=== PATIENT | female | born 1965 | race Caucasian/White ===

== ENCOUNTER 2016-02-16 | Inpatient (IN) | payer MEDICARE, MEDICAID ==
[~2016-02-16] VITALS: Ht 170.2 cm; Wt 90.9 kg
[~2016-02-16] MED LIST: ABILIFY20 MG PO; AMBIEN10 MG PO; ISOSORBIDE MONO30 M1 PO; LOPRESSOR25 MG PO; PROZAC20 MG PO; ZPAK PO
[2016-02-16] MEDS ORDERED: ZYPREXA15 MG PO (01:53)
[2016-02-16] MEDS ORDERED: VALIUM10 MG PO (01:55)
[2016-02-16] MEDS ORDERED: DILAUDID2 MG PO (01:56)
[2016-02-16 02:23] VITALS: BP 104/60; Ht 170.2 cm; Wt 90.9 kg
--- NOTE | 2016-02-16 03:14 | NUR ---
20 PIV TO RIGHT FOREARM D/C WITH CATH INTACT AFTER PATIENT EXPRESSED DISCOMFORT. 22 G PIV STARTED IN RIGHT HAND.
[2016-02-16 04:00] VITALS: BP 104/60
--- NOTE | 2016-02-16 07:30 | NUR ---
AWAKE ALERT COLOR ADQ SKIN WARM AND DRY RESP EVEN AND UNLABORED LUNGS RALES WHEEZES IV CONT TO RDH AT PRESENT.
[2016-02-16 08:26] VITALS: BP 102/65
--- NOTE | 2016-02-16 09:00 | NUR ---
QUIET IN ROOM AT PRESENT DENIES ANY NEEDS AT THIS TIME.
--- NOTE | 2016-02-16 10:30 | NUR ---
Patient Name: FRANCISCO MO Admission Status: ER Accout number: [id number] Admission Date: 02-16-2016 : 1965 Admission Diagnosis: Attending: TANIYA Current LOS: 1 Anticipated DC Date: 02-19-2016 Planned Disposition: Home Primary Insurance: MEDICARE A & B Discharge Planning Comments: CM MET WITH PATIENT AND SPOUSE (BARBARA) REGARDING D/C NEEDS AND PLANS. PATIENTS SPOUSE ANSWERED ALL THE QUESTIONS. PATIENTS SPOUSE WILL PICK PATIENT UP AT DISCHARGE. THERE ARE 6 STEPS W/O RAILS TO ENTER HOME AND NO STAIRS INSIDE. PATIENTS PCP IS DR. GRULLON AND PHARMACY IS [facility]. PATIENT IS INDEPENDENT WITH HER CARE AND HAS NO DME AT HOME PER SPOUSE. PATIENT HAS NEVER HAD HH BUT SPOUSE SAID THEY WOULD CONSIDER IF NEEDED. CM WILL CONTINUE TO FOLLOW PATIENT WITH D/C NEEDS AND PLANS. PCP DR. GRULLON [facility]- [phone] BARBARA (SPOUSE) [phone] Layer Out Plate Glass: Shell [place] Is the patient Alert and Oriented? Yes 0 * How many steps to enter\exit or inside your home? 6 NO RAILS 0 * PCP DR. GRULLON 0 * Pharmacy [facility] 0 * Preadmission Environment Home with Family 0 * ADLs Independent 0 * Equipment None 0 * List name and contact numbers for known caregivers / representatives who currently or will assist patient after discharge: BARBARA ([phone]) 0 * Community resources currently utilized None 0 * Additional services required to return to the preadmission environment? Yes 0 * Can the patient safely return to the preadmission environment? Yes 0 * Has this patient been hospitalized within the prior 30 days at any hospital? No 0 Grand Total: 0
--- NOTE | 2016-02-16 10:54 | NUR ---
SLEEPING QUIETLY AT PRESENT RESP EVEN AND UNLABORED AT PRESENT AT BEDSIDE AT PRESENT.
[2016-02-16 11:11] LABS: BASOPHILS 0.3 % (0.0-2.0); EOSINOPHILS 2.1 % (0-7); HEMATOCRIT 37.7 % (36.0-48.0); HEMOGLOBIN 12.3 g/dL (12-16); IMMATURE GRANULOCYTES 0.3 % (0-5); MCH 30.4 pg (26.0-34.0); MCHC 32.6 g/dL (31.0-37.0); MCV 93.3 fL (80.0-100.0); MEAN PLATELET VOLUME 10.7 fL (7.4-10.4); MONOCYTES 7.9 % (2-11); NEUTROPHILS 61.4 % (40-80); PLATELET COUNT 243 10x3/uL (130-400); RBC 4.04 10x6/uL (4.00-5.40); RDW 16.2 % (11.5-14.5); WBC 11.2 10x3/uL (4.8-10.8)
--- NOTE | 2016-02-16 14:12 | NUR ---
QUIET IN ROOM AT PRESENT
--- NOTE | 2016-02-16 15:42 | NUR ---
COUGHING DRY NON-PRODUCTIVE BREATH SOUNDS DIMINSHED AT PRESENT.
[2016-02-16 16:20] VITALS: BP 114/69
--- NOTE | 2016-02-16 18:03 | NUR ---
STATUS REMAINS UNCHGD AT PRESENT DENIES ANY NEEDS SLEEPING CONT AT BEDSIDE.
--- NOTE | 2016-02-16 19:30 | NUR ---
ASSESSMENT PER FLOWSHEET. PT C/O BURNING AT IV SITE. CHECKED FOR PLACEMENT NO BLOOD RETURN NOTED. IV REMOVED AND RESITED TO LEFT HAND #22G ANGIOCATH X1 ATTEPMT RESUMED IV FLUIDS OF D5NS AT 100CC'S/HR PLASTERER SPRAY GUN OF DILAUDID IN USE WITH SETTINGS AT 0.2MG Q10MIN WITH 4MG Q4H L/O. INSRUCTED PT THE NEED FOR URINE SPECIMEN.
[2016-02-16 21:00] VITALS: BP 111/67
--- NOTE | 2016-02-16 21:00 | NUR ---
RESTING QUIETLY SPOUSE IN ROOM.
--- NOTE | 2016-02-17 00:40 | NUR ---
EYES CLOSED RESPIRATIONS WITH EASE AND UNLABORED.
[2016-02-17 01:00] VITALS: BP 110/66
--- NOTE | 2016-02-17 01:15 | NUR ---
STATES CANNOT VOID. UP TO BR VOIDED 100CC'S YELLOW URINE. BLADDER SCAN DONE 180CC'S NOTED IN BLADDER.
[2016-02-17 02:19] LABS: APPEARANCE CLOUDY (CLEAR); BILIRUBIN NEGATIVE (NEGATIVE); COLOR YELLOW (YELLOW); GLUCOSE NEGATIVE (NEGATIVE); KETONE NEGATIVE (NEGATIVE); LEUKOCYTE ESTERASE TRACE (NEGATIVE); NITRITE NEGATIVE (NEGATIVE); PH 5.5 (5.0-6.0); PROTEIN NEGATIVE (NEGATIVE); UROBILINOGEN NORMAL (NORMAL)
[2016-02-17 02:26] LABS: UDS - AMPHET NEGATIVE QUAL (NEGATIVE); UDS - BARB NEGATIVE QUAL (NEGATIVE); UDS - BENZO POSITIVE QUAL (NEGATIVE); UDS - COCAINE NEGATIVE QUAL (NEGATIVE); UDS - METH NEGATIVE QUAL (NEGATIVE); UDS - OPIATE POSITIVE QUAL (NEGATIVE); UDS - PCP NEGATIVE QUAL (NEGATIVE); UDS - THC NEGATIVE QUAL (NEGATIVE)
[2016-02-17 02:27] LABS: BACTERIA MODERATE /hpf (NONE SEEN); HYALINE CAST OCC /lpf (NONE SEEN); MUCUS <1+ /lpf (NONE SEEN); RED CELLS - URINE 0-5 /hpf (0-5); WHITE CELLS - URINE 0-5 /hpf (0-5)
--- NOTE | 2016-02-17 04:00 | NUR ---
MEDS GIVEN PER APR. PT STATES IV APPEARS TO BE SWELLING ASPIRATED IV SITE WITH NS FLUSH GOOD BLOOD RETURN NOTED. FLUSHED IV SITE AND RESUMED IV FLUIDS.
[2016-02-17 06:00] VITALS: BP 114/68
--- NOTE | 2016-02-17 06:00 | NUR ---
UP AD IVETT TO BR VOIDS 300 CC'S YELLOW URINE.
--- NOTE | 2016-02-17 07:30 | NUR ---
QUIET IN ROOM AT PRESENT N/C VOICED AT THIS TIME.IVCONT AT 75CC/HR/IVAC.
[2016-02-17 08:37] VITALS: BP 115/73
--- NOTE | 2016-02-17 09:00 | NUR ---
MEDS GIVEN KARLOS WELL AT PRESENT.
--- NOTE | 2016-02-17 11:00 | NUR ---
NO COMPLIANTS VOICED AT PRESENT.
[2016-02-17 12:23] VITALS: BP 135/69
--- NOTE | 2016-02-17 13:00 | NUR ---
SLEEPING QUIETLY AT PRESENT DENIES ANY NEEDS AT THIS TIME.
[2016-02-17 16:11] VITALS: BP 135/70
--- NOTE | 2016-02-17 17:00 | NUR ---
WATCHING TV QUIETLY AT PRESENT.
--- NOTE | 2016-02-17 19:00 | NUR ---
AMB IN HALLWAY WITH IV KARLOS WELL AT PRESENT.
--- NOTE | 2016-02-17 20:55 | NUR ---
ASSESSMENT COMPLETED, NO ACUTE DISTRESS NOTED, DENIES NEEDS, VISITOR IN ROOM, SR'S UP X2, CL IN REACH
[2016-02-17 21:00] VITALS: BP 134/80
--- NOTE | 2016-02-17 22:16 | NUR ---
AB'S HUNG PER LUIS, KARLOS BEARD, VISITOR IN ROOM, CL IN REACH
--- NOTE | 2016-02-18 01:33 | NUR ---
MYA MILLER PER LUIS, KARLOS WELL, CL IN REACH
[2016-02-18 02:00] VITALS: BP 126/77
[2016-02-18 07:56] VITALS: BP 123/66
[2016-02-18 11:21] LABS: BASOPHILS 0.4 % (0.0-2.0); EOSINOPHILS 3.5 % (0-7); HEMATOCRIT 33.9 % (36.0-48.0); HEMOGLOBIN 10.8 g/dL (12-16); IMMATURE GRANULOCYTES 0.3 % (0-5); LYMPHOCYTES 33.8 % (15-50); MCH 29.5 pg (26.0-34.0); MCHC 31.9 g/dL (31.0-37.0); MCV 92.6 fL (80.0-100.0); MONOCYTES 8.2 % (2-11); NEUTROPHILS 53.8 % (40-80); PLATELET COUNT 217 10x3/uL (130-400); RBC 3.66 10x6/uL (4.00-5.40); RDW 15.8 % (11.5-14.5); WBC 9.6 10x3/uL (4.8-10.8)
[2016-02-18 11:39] LABS: ALBUMIN 2.8 g/dL (3.4-5.0); ALKALINE PHOSPHATASE 102 U/L (46-116); ALT (SGPT) 61 U/L (10-68); BILIRUBIN - TOTAL 0.44 mg/dL (0.2-1.3); CALC OSMOLALITY 271 mosm/kg (275-300); CALCIUM 8.3 mg/dL (8.5-10.1); CARBON DIOXIDE 25.4 mmol/L (21.0-32.0); CHLORIDE - SERUM 103 mmol/L (98-107); CREATININE - SERUM 0.7 mg/dL (0.6-1.3); GLUCOSE 113 mg/dL (74-106); POTASSIUM - SERUM 3.4 mmol/L (3.5-5.1); PROTEIN - SERUM 6.3 g/dL (6.4-8.2); SODIUM 137 mmol/L (136-145); UREA NITROGEN 5 mg/dL (7-18); eGFR NON AFRICAN AMERICAN > 90 mL/min (90-120)
[2016-02-18 12:24] VITALS: BP 117/67
--- NOTE | 2016-02-18 13:58 | NUR ---
PATIENT STATED SHE DOESN'T FEEL WELL. CHECKED OXGYEN SATURATION 85% ON ROOM AIR. APPLIED 2L/MIN OF OXYGEN. PATIENT'S OXGYEN LEVEL WENT UP TO 93%.
[2016-02-18 16:06] VITALS: BP 113/69
[2016-02-18 17:05] LABS: ERYTHROCYTE SEDIMENTATION RATE 43 mm/hr (0-30)
--- NOTE | 2016-02-18 19:59 | NUR ---
RECIEVED PT SITTING UP IN BED TALKING WITH VISITOR, ASSESSMENT COMPLETED, NO ACUTE DISTRESS NOTED, POPSICLE PROVIDED PER REQUEST, ENCOURAGED OXYGEN USE, NC PLACED, DENIES FURTHER NEEDS AT THIS TIME, SR'S UP X2, CL IN REACH, WILL MONITOR
[2016-02-18 20:00] VITALS: BP 111/43
--- NOTE | 2016-02-18 21:34 | NUR ---
MEDS GIVEN PER MAR, KARLOS WELL, DENIES NEEDS, SR'S UP X2, CL IN REACH, FAMILY IN ROOM
--- NOTE | 2016-02-18 23:08 | NUR ---
SOLUMEDROL GIVEN PER MAR, KARLOS WELL, NO DISTRESS NOTED, CL IN REACH
--- NOTE | 2016-02-19 00:56 | NUR ---
RESTING WITH EYES CLOSED, RESP WITH EASE, MYA MILLER PER APR, KARLOS WELL, SR'S UP X2, CL IN REACH
[2016-02-19 01:00] VITALS: BP 110/55
--- NOTE | 2016-02-19 01:58 | NUR ---
PATIENT AMBULATING IN HALLWAY ASKING FOR SODA, NO IV POLE, PATIENT STATES " I MUST HAVE ROLLED OVER AND PULLED IT OUT", MIDLINE IV FOUND ATTACHED TO TUBING WITH CATH INTACT, NO ACTIVE BLEEDING NOTED, WILL ATTEMPT TO SITE PERIPHERAL IV.
--- NOTE | 2016-02-19 02:19 | NUR ---
20 G IV SITED IN L WRIST X1 STICK, KARLOS WELL, IV FLUIDS RESTARTED, RESP THERAPY IN ROOM ADMINISTERING TX, SR'S UP X2, CL IN REACH
[2016-02-19 06:39] LABS: BASOPHILS 0.1 % (0.0-2.0); EOSINOPHILS 0 % (0-7); HEMATOCRIT 34.4 % (36.0-48.0); HEMOGLOBIN 11.1 g/dL (12-16); IMMATURE GRANULOCYTES 0.3 % (0-5); LYMPHOCYTES 12.3 % (15-50); MCH 29.8 pg (26.0-34.0); MCHC 32.3 g/dL (31.0-37.0); MCV 92.2 fL (80.0-100.0); MONOCYTES 4.3 % (2-11); PLATELET COUNT 254 10x3/uL (130-400); RBC 3.73 10x6/uL (4.00-5.40); RDW 15.4 % (11.5-14.5)
[2016-02-19 06:44] LABS: CALCIUM 8.8 mg/dL (8.5-10.1); CARBON DIOXIDE 25.4 mmol/L (21.0-32.0); CHLORIDE - SERUM 106 mmol/L (98-107); CREATININE - SERUM 0.8 mg/dL (0.6-1.3); GLUCOSE 156 mg/dL (74-106); SODIUM 141 mmol/L (136-145); eGFR NON AFRICAN AMERICAN 80 mL/min (90-120)
[2016-02-19 07:02] LABS: CALC OSMOLALITY 282 mosm/kg (275-300); UREA NITROGEN 9 mg/dL (7-18)
[2016-02-19 07:59] VITALS: BP 130/69
--- NOTE | 2016-02-19 08:00 | NUR ---
PATIENT STATED "I STILL HAVEN'T GOT MY PAIN PUMP REFILLED." I STATED "THE ORDER FOR THE CLOTH GRADER SUPERVISOR IS DISCONTINUED. WE JUST HAVE AN ORDER FOR THE DILAUDID IN THE PILL FORM NOW." ADMINISTERED DILAUDID 2MG PO PER ORDER. PATIENT STATED "SO WHEN IS THE DOCTOR GOING TO COME IN AND LET ME KNOW IF I CAN GO HOME OR SOMETHING?" EXPLAINED TO PATIENT USUALLY COMES IN THE AFTERNOON AND USUALLY COMES IN THE EVENING.
--- NOTE | 2016-02-19 09:10 | NUR ---
DUMP TRUCK OPERATOR STATED "PATIENT STATED SHE IS NAUSEOUS AND HAS A MIGRAINE. AND WANTS TO GET IN THE SHOWER." PULLED MEDS FROM THE PYXIS TO ADMINISTER ZOFRAN. WENT IN PATIENT'S ROOM, PATIENT GETTING READY TO GET IN THE SHOWER. IV WRAPPED. NO SIGNS OF DISTRESS NOTED. I STATED "I WAS COMING TO BRING YOU YOUR MEDS BUT I CAN WAIT UNTIL YOU GET OUT OF THE SHOWER." PATIENT STATED "OKAY."
--- NOTE | 2016-02-19 09:30 | NUR ---
IV IN LEFT WRIST LEAKING. D/C IV WITH CATH INTACT. IV STARTED TO RIGHT WRIST, 22G X'S 2 ATTEMPTS.
[2016-02-19 10:17] LABS: ANA REFLEX - DIRECT Negative (Negative)
[2016-02-19 11:45] VITALS: BP 116/64
--- NOTE | 2016-02-19 14:00 | NUR ---
PATIENT STATED "I NEED SOMETHING FOR MY MIGRAINE. THE DILAUDID DID NOTHING FOR IT, AND NEITHER DID THE MOTRIN. I HAVE THIS IV, MAYBE HE CAN GIVE ME SOMETHING TO GO IN IT, PILLS JUST DO NOT WORK FOR A MIGRAINE." CALLED 'S OFFICE, SPOKE WITH NAHOMI, SHE STATED IS IN WITH A PATIENT. LEFT A MESSAGE FOR TO CALL BACK.
--- NOTE | 2016-02-19 15:10 | NUR ---
STILL HAS NOT CALLED BACK. CALLED 'S OFFICE, SPOKE WITH HIS NURSE. LEFT HER A MESSAGE FOR .
[2016-02-19 15:46] VITALS: BP 105/32
--- NOTE | 2016-02-19 17:00 | NUR ---
PATIENT STATED "I NEED SOMETHING FOR THIS HEADACHE." I STATED "DO YOU WANT ME TO GIVE YOU A MOTRIN OR A DILAUDID PILL?" SHE STATED "NO. TRY TO CALL AGAIN AND IF HE DOESN'T CALL BACK THEN I'LL TAKE SOMETHING."
--- NOTE | 2016-02-19 17:12 | NUR ---
CALLED THE ANSWERING SERVICE, THEY STATED DWAINN IS ANTI AIR WARFARE OPERATIONS OFFICER. PUT IN A PAGE.
--- NOTE | 2016-02-19 17:14 | NUR ---
SPOKE WITH AMBER ARENAS FOR , SHE STATED "I WILL GET IN TOUCH WITH HIM AND LET HIM KNOW."
--- NOTE | 2016-02-19 17:15 | NUR ---
PATIENT'S CALLED. HE STATED "SHE JUST CALLED AND TOLD ME TO COME PICK HER UP. IS SHE DISCHARGED?" EXPLAINED TO "SHE HAS NOT SAID ANYTHING TO ME ABOUT LEAVING. SHE IS WANTING SOME DIFFERENT PAIN MEDICATION, I HAVE TRIED TO CALL 3 TIMES. I AM WAITING FOR HIM TO CALL BACK."
[2016-02-19 19:00] VITALS: BP 100/49
--- NOTE | 2016-02-19 20:10 | NUR ---
ASSESSMENT COMPLETED, NO ACUTE DISTRESS NOTED, WANTING DR GRULLON TO RE ORDER IV PAIN MEDICATION, AWAITING RETURN CALL FROM PAGES, SPOUSE IN ROOM, SR'S UP X2, CL IN REACH
--- NOTE | 2016-02-19 21:11 | NUR ---
MEDS GIVEN PER MAR, KARLOS WELL, STILL AWAITING MD ORDERS, SPOUSE IN ROOM, CL IN REACH
--- NOTE | 2016-02-19 22:05 | NUR ---
PRN DILAUDID AND ZOFRAN GIVEN FOR COMPLAINT OF MIGRAINE WITH NAUSEA, SUGGESTED SHUTTING LIGHTS AND TV OFF, PT STATED " I USUALLY DO", REQUESTED SOMETHING TO EAT, NAIMA PROVIDED, SPOUSE IN ROOM, CL IN REACH
--- NOTE | 2016-02-20 06:03 | NUR ---
PATIENT RETURNED FROM XRAY, MEDS GIVEN PER MAR, KARLOS WELL, CL IN REACH
[2016-02-20 06:37] LABS: CALC OSMOLALITY 289 mosm/kg (275-300); CARBON DIOXIDE 25.1 mmol/L (21.0-32.0); CHLORIDE - SERUM 110 mmol/L (98-107); CREATININE - SERUM 0.8 mg/dL (0.6-1.3); GLUCOSE 141 mg/dL (74-106); POTASSIUM - SERUM 4.1 mmol/L (3.5-5.1); SODIUM 145 mmol/L (136-145); UREA NITROGEN 10 mg/dL (7-18); eGFR NON AFRICAN AMERICAN 80 mL/min (90-120)
[2016-02-20 06:46] LABS: BASOPHILS 0.1 % (0.0-2.0); EOSINOPHILS 0 % (0-7); HEMATOCRIT 34.1 % (36.0-48.0); IMMATURE GRANULOCYTES 0.6 % (0-5); LYMPHOCYTES 12.3 % (15-50); MCH 29.8 pg (26.0-34.0); MCHC 32.3 g/dL (31.0-37.0); MCV 92.4 fL (80.0-100.0); MEAN PLATELET VOLUME 9.9 fL (7.4-10.4); MONOCYTES 6.3 % (2-11); NEUTROPHILS 80.7 % (40-80); PLATELET COUNT 311 10x3/uL (130-400); RBC 3.69 10x6/uL (4.00-5.40); RDW 15.7 % (11.5-14.5); WBC 14.9 10x3/uL (4.8-10.8)
[2016-02-20 07:48] VITALS: BP 108/63
--- NOTE | 2016-02-20 10:39 | NUR ---
SHANK SORTER PUT EGG CRATE ON BED. PATIENT VERBALIZED THAT HER BACK FEELS MUCH BETTER.
[2016-02-20 11:13] LABS: ANGIOTENSIN CONVERTING ENZYME 23 U/L (14-82)
[2016-02-20 11:51] VITALS: BP 112/61
--- NOTE | 2016-02-20 13:46 | NUR ---
DISCONTINUED IVF. SALINE LOCKED IV.
--- NOTE | 2016-02-20 15:46 | NUR ---
PATIENT RESTING QUIETLY WITH EYES CLOSED.
[2016-02-20 16:07] VITALS: BP 114/73
[2016-02-20 20:00] VITALS: BP 107/61
--- NOTE | 2016-02-20 20:00 | NUR ---
ASSESSMENT PER FLOWSHEET IV SALINE LOCK PATENT TO RT HAND SITE CLEAR. AMBULATED IN HALLWAY WITH SPOUSE. TOLERATED WELL.
--- NOTE | 2016-02-20 21:15 | NUR ---
MEDS GIVEN PER MAR.
--- NOTE | 2016-02-20 22:00 | NUR ---
RESTING IN BED DENIES NEEDS.
--- NOTE | 2016-02-21 | NUR ---
EYES CLOSED RESPIRATIONS WITH EASE. SNORES WHILE SLEEPING.
[2016-02-21 00:19] VITALS: BP 109/56
--- NOTE | 2016-02-21 03:00 | NUR ---
EYES CLOSED RESPIRATIONS WITH EASE AND UNLABORED.
[2016-02-21 04:22] VITALS: BP 94/52
--- NOTE | 2016-02-21 06:14 | NUR ---
MEDS GIVEN PER APR. PT GOT UP TO BR VOIDED AND WHEN RETURNING TO BED PULLS OUT IV.
--- NOTE | 2016-02-21 06:19 | NUR ---
HEAT APPLIED TO ARM C.JEAN RN CLASSIFIED ADVERTISING MANAGER WILL ATTEMPT IV.
[2016-02-21 06:58] LABS: BASOPHILS 0.1 % (0.0-2.0); EOSINOPHILS 0.3 % (0-7); HEMATOCRIT 33.8 % (36.0-48.0); IMMATURE GRANULOCYTES 1.1 % (0-5); LYMPHOCYTES 24.1 % (15-50); MCH 29.8 pg (26.0-34.0); MCHC 32.5 g/dL (31.0-37.0); MCV 91.6 fL (80.0-100.0); MEAN PLATELET VOLUME 9.5 fL (7.4-10.4); MONOCYTES 7.1 % (2-11); NEUTROPHILS 67.3 % (40-80); PLATELET COUNT 323 10x3/uL (130-400); RBC 3.69 10x6/uL (4.00-5.40); RDW 15.8 % (11.5-14.5); WBC 11.5 10x3/uL (4.8-10.8)
[2016-02-21 07:11] LABS: ANION GAP 12.5 mmol/L (8-16); CALCIUM 8.9 mg/dL (8.5-10.1); POTASSIUM - SERUM 3.5 mmol/L (3.5-5.1)
[2016-02-21 07:12] LABS: CREATININE - SERUM 1.3 mg/dL (0.6-1.3)
--- NOTE | 2016-02-21 07:54 | NUR ---
BACK FROM XRAY,WITHOUT DISTRESS.CALL LIGHT IN REACH
[2016-02-21 08:10] VITALS: BP 107/64
[2016-02-21 12:30] VITALS: BP 124/82
--- NOTE | 2016-02-21 12:36 | NUR ---
PATIENT RESTING IN BED WITH EVEN RESPIRATIONS. NO SIGNS OF DISTRESS NOTED. WILL CONTINUE TO MONITOR.
[2016-02-21 16:34] VITALS: BP 101/63
[2016-02-21 19:00] VITALS: BP 100/62
--- NOTE | 2016-02-21 19:12 | NUR ---
Received patient in bed, son at bedside. PIV in Lt forearm infusing NS @10ml/hr. Resting quietly, no voiced complaints.
--- NOTE | 2016-02-22 01:10 | NUR ---
Given Dilaudid 2mg po PRN for complaints of headache and right shoulder pain 09/30. Noted to have 2cm x 2cm bruise on right upper arm. Patient does not remeber how this happened.
[2016-02-22 04:42] VITALS: BP 120/58
--- NOTE | 2016-02-22 06:10 | NUR ---
Slept for long periods, Dilaudid PRN deemed effective. No complaints voiced at this time. Respirations unlabored. IV infusing @10ml/hr. Has been up to BR, ambulates on own.
[2016-02-22 06:40] LABS: CALC OSMOLALITY 283 mosm/kg (275-300); CALCIUM 8.3 mg/dL (8.5-10.1); CARBON DIOXIDE 26.9 mmol/L (21.0-32.0); CHLORIDE - SERUM 105 mmol/L (98-107); GLUCOSE 102 mg/dL (74-106); SODIUM 142 mmol/L (136-145); UREA NITROGEN 16 mg/dL (7-18)
[2016-02-22 06:50] LABS: CREATININE - SERUM 0.7 mg/dL (0.6-1.3); POTASSIUM - SERUM 4.2 mmol/L (3.5-5.1); eGFR NON AFRICAN AMERICAN > 90 mL/min (90-120)
[2016-02-22 07:05] LABS: BASOPHILS 0.2 % (0.0-2.0); EOSINOPHILS 2.8 % (0-7); HEMOGLOBIN 11.6 g/dL (12-16); IMMATURE GRANULOCYTES 0.8 % (0-5); LYMPHOCYTES 37.7 % (15-50); MCH 29.4 pg (26.0-34.0); MCHC 32.2 g/dL (31.0-37.0); MCV 91.4 fL (80.0-100.0); MEAN PLATELET VOLUME 9.3 fL (7.4-10.4); MONOCYTES 7.9 % (2-11); NEUTROPHILS 50.6 % (40-80); PLATELET COUNT 315 10x3/uL (130-400); RBC 3.94 10x6/uL (4.00-5.40); RDW 15.8 % (11.5-14.5); WBC 9.2 10x3/uL (4.8-10.8)
--- NOTE | 2016-02-22 07:44 | NUR ---
Given Dilaudid 2mg po PRN for complaints of migraine headache, pain level at 7/10, will monitor for effectiveness.
--- NOTE | 2016-02-22 08:30 | NUR ---
RECIEVED REPORT O NPATIENT, PATIENT IS ALERT AND ORIENTED AT THIS TIME. PATIENT HAS A L AC IV THAT IS INFUSING WITH NS AT 10ML/HR AT THIS TIME. PATIENT IS COMPLAINING THAT IV IS BOTHERING HER, IFLUSHED IV AND IV IS INFILTRATED. DC IV WITH CATH TIP INTACT. PATIENT STATES SHE WANTS TO WAIT ON GETTING ANOTHER IV UNTIL SHE KNOWS IF SHE IS BEING DC. PATIENT DENIES ANY OTHER NEEDS AT THIS TIME. WILL CONT TO MONITOR PATIENT, CPOC
[2016-02-22 08:38] VITALS: BP 100/69
--- NOTE | 2016-02-22 12:10 | NUR ---
SPOKE WITH RUSS AT DR GRULLON OFFICE, PATIENT IS OKAY FOR DC TO HOME, CONT HOME MEDICATIONS AND ADD WHAT DR NORTON WANTS. THEIR OFFICE WILL CALL HER FOR FOLLOW UP APPT.
[2016-02-22 13:40] VITALS: BP 121/61
[2016-02-22] MEDS ORDERED: MEDROL DOSE PACK4 MG PO (13:44)
[2016-02-22] MEDS ORDERED: COMBIVENT RESPIM4 GM INH (13:45)
[2016-02-22] MEDS ORDERED: SYMBICORT 16010.2 GM INH (13:46)
[2016-02-22] MEDS ORDERED: LEVAQUIN750 MG PO (13:47)
[2016-02-22] MEDS ORDERED: IPRAT-ALBUT 0.5-3 ML UPD (14:14)
--- NOTE | 2016-02-22 14:50 | NUR ---
PATIENT C/O OF HEADACHE WILL GIVE MOTRIN. CPOC
--- NOTE | 2016-02-22 15:30 | NUR ---
PATIENT GIVEN DC INSTRUCTIONS. DENIES ANY FURTHER QUESTIONS. PATIENT GOT HER NEBULIZER EQUIPMENT. PATIENT READY FOR DC
--- NOTE | 2016-02-22 17:17 | NUR ---
Late Entry 1430 Received telephone call from health coordinator. Patient is ready for discharge. She needs a nebulizer. Patient has no preferred DME provider. TC to [facility]. Received CB from [facility]. CM faxed Face sheet, MD order , pulmonary consult and progress note. CM went to patient's bedside and spoke w/ her and her . Explained she needed to obtain the nebulizer meds from the pharmacy today but they can be covered under her Medicare B. Explained the meds are usually air expressed to patient thru a supplier. Nebulizer was delivered to the patient's room. She was discharged to home w/ her .
--- NOTE | 2016-03-17 09:12 | CN ---
PATIENT NAME:FRANCISCO FRANKLIN MEDICAL RECORD: [id number] : 61 LOCATION:D.[id number] ADMIT DATE: 02/16/16 ACCOUNT: [id number] CONSULTING PHYSICIAN: JOSE NORTON MD REFERRING PHYSICIAN: TERRY GRULLON MD DATE OF CONSULTATION: 02/18/2016 CONSULT REQUESTING PHYSICIAN: Trery Grullon MD REASON FOR CONSULTATION: Acute cough and shortness of breath. HISTORY OF PRESENT ILLNESS: Ms. Franklin is a 50-year-old very pleasant female. According to the patient, she is not feeling well for the last 4 weeks. It gradually started with a shortness of breath with mild exertion. She was coughing, which became productive for the last 2-3 weeks with yellow colored sputum production. Sometimes, she will hear herself wheezing. She has shortness of breath with mild exertion. There were no fevers or chills. She has night sweats, which is not different from her post-menopausal symptoms. She stated she is gaining weight. She still continues to smoke almost a pack a day. She has gastroesophageal reflux symptoms that are very bad. REVIEW OF SYSTEMS: Mainly in the history of present illness. PAST MEDICAL HISTORY: 1. Gastroesophageal reflux disease. 2. Continued smoking, nicotine dependence. PAST SURGICAL HISTORY: 1. Cholecystectomy. 2. Hysterectomy. ALLERGIES: SHE IS ALLERGIC TO STADOL AND TORADOL. PRESENT MEDICATIONS: She is on albuterol/ipratropium nebulizer, Zithromax and Levaquin. PERSONAL AND SOCIAL HISTORY: The patient is still smoking a pack a day for almost more than 40 years. She is a nondrinker. FAMILY HISTORY: Noncontributory. PHYSICAL EXAMINATION: GENERAL: Now, the patient is lying comfortably in bed. She is not in acute distress. VITAL SIGNS: The blood pressure is 117/67, pulse is 114, respiration is 20, temperature 99.7, and SpO2 is 95% on 2 liters. HEENT: Conjunctivae pink, sclerae nonicteric. NECK: Supple, no JVD. CHEST: The chest excursion is minimal with bilateral crackles and wheeze on forceful expiration. HEART: Rhythm regular, normal sound, no murmur. ABDOMEN: Soft, bowel sounds present. No hepatosplenomegaly. RECTAL: Deferred. EXTREMITIES: No cyanosis, no clubbing, no pedal edema. SKIN: Warm, normal turgor. CONSULT REPORT [id number] FRANCISCO FRANKLIN CENTRAL NERVOUS SYSTEM: The patient is awake and alert. There is no obvious cranial nerve abnormality. The gait was not tested. IMAGING: CT scan of the chest: There is bilateral ground-glass infiltrate, which is multifocal. There are also emphysematous changes. There are old granulomatous changes in the mediastinal and perihilar region with a calcified lymph node. Now, there is no CT evidence of a lymphadenopathy. LABORATORY DATA: CBC: WBC 11.2, hemoglobin 12.3, hematocrit 37.7 and the platelet count is 243. Chemistry: Sodium is 137, potassium 3.4, BUN is 5, creatinine 0.7, glucose 113. IMPRESSION: 1. Acute hypoxic respiratory failure. 2. Acute exacerbation of chronic obstructive pulmonary disease. 3. Bilateral ground-glass have been most likely aspiration pneumonia secondary to her gastroesophageal reflux disease, rule out connective tissue disorder, rule out sarcoidosis with old calcified lymph nodes. 4. Gastroesophageal reflux disease. 5. Hiatal hernia. 6. Tobacco dependence syndrome. 7. Leukocytosis. 8. Dyspnea. 9. Old granulomatous disease with calcified lymph node, possible sarcoidosis, possible histoplasmosis, doubt TB. RECOMMENDATION: 1. Continue Levaquin. I will add Zosyn to cover for anaerobes and Gram-negative rods and aspiration pneumonia. 2. Start methylprednisolone IV. Start Brovana and budesonide nebulizer. 3. Mucinex DM. 4. Follow up labs and chest radiograph. Check the LLOYD, rheumatoid factor and ESR. I would check the ACES level. Dr. Grullon, once again thanks for involving me in the care of Ms. Franklin. TRANSINT:[id number] Voice Confirmation ID: [id number] DOCUMENT ID: [id number] JOSE NORTON MD at 0912 CC: TERRY GRULLON MD [id number] DICTATION DATE: 02/18/16 1526 SAS ADMINISTRATOR: 02/18/16 2100 DIS IN 02/22/16 [id number] [place] [address]
[2016-05-10] MEDS ORDERED: TOPAMAX50 MG PO (10:41)
== END 2016-02-22 15:41 | disposition home or self-care (01) | DRG 189 ==
LOC: D.ER → D.MS 01:01
PROVIDERS: Internal Medicine Pulmonary Disease; ADMIT Legal Medicine
PROC: 05HY33Z Insertion of Infusion Device into Upper Vein, Percutaneous Approach (ICD-10-PCS; principal; 2016-02-17)
DX: J96.01 Acute respiratory failure with hypoxia (principal); J69.0 Pneumonitis due to inhalation of food and vomit; J44.0 Chronic obstructive pulmonary disease with (acute) lower respiratory infection; E87.6 Hypokalemia; F17.200 Nicotine dependence, unspecified, uncomplicated; K21.9 Gastro-esophageal reflux disease without esophagitis

== ENCOUNTER 2016-03-05 18:51 | Emergency (ER) | payer MEDICARE, MEDICAID ==
[2016-02-16 02:23] VITALS: BMI 31.4
[~2016-03-05 18:51] MED LIST changes: +COMBIVENT RESPIM4 GM INH; +DILAUDID2 MG PO; +IPRAT-ALBUT 0.5-3 ML UPD; +LEVAQUIN750 MG PO; +MEDROL DOSE PACK4 MG PO; +SYMBICORT 16010.2 GM INH; +VALIUM10 MG PO; +ZYPREXA15 MG PO
[2016-05-10] MEDS ORDERED: TOPAMAX50 MG PO (10:41)
== END 2016-03-06 02:04 | disposition home or self-care (01) ==
LOC: D.ER 18:51
DX: G43.909 Migraine, unspecified, not intractable, without status migrainosus (principal); M94.0 Chondrocostal junction syndrome [Tietze]; M54.5 Low back pain; E87.5 Hyperkalemia

== ENCOUNTER 2016-03-08 16:29 | Emergency (ER) | payer MEDICARE, MEDICAID ==
[2016-02-16 02:23] VITALS: BMI 31.4
[2016-05-10] MEDS ORDERED: TOPAMAX50 MG PO (10:41)
== END 2016-03-08 19:08 | disposition home or self-care (01) ==
LOC: D.ER 16:29
DX: G43.909 Migraine, unspecified, not intractable, without status migrainosus (principal); E87.5 Hyperkalemia; F17.200 Nicotine dependence, unspecified, uncomplicated

== ENCOUNTER 2016-03-16 16:33 | Emergency (ER) | payer MEDICARE, MEDICAID ==
[2016-02-16 02:23] VITALS: BMI 31.4
[2016-03-16 17:15] LABS: BASOPHILS 0.1 % (0.0-2.0); EOSINOPHILS 0.1 % (0-7); HEMATOCRIT 48.1 % (36.0-48.0); HEMOGLOBIN 16.5 g/dL (12-16); IMMATURE GRANULOCYTES 0.6 % (0-5); LYMPHOCYTES 11.2 % (15-50); MCH 30.6 pg (26.0-34.0); MCHC 34.3 g/dL (31.0-37.0); MCV 89.2 fL (80.0-100.0); MEAN PLATELET VOLUME 10.6 fL (7.4-10.4); MONOCYTES 8.2 % (2-11); NEUTROPHILS 79.8 % (40-80); PLATELET COUNT 330 10x3/uL (130-400); RBC 5.39 10x6/uL (4.00-5.40); RDW 15.1 % (11.5-14.5); WBC 18.8 10x3/uL (4.8-10.8)
[2016-03-16 17:37] LABS: ALBUMIN 3.9 g/dL (3.4-5.0); ANION GAP 24.7 mmol/L (8-16); BILIRUBIN - TOTAL 0.59 mg/dL (0.2-1.3); CALCIUM 9.7 mg/dL (8.5-10.1); CARBON DIOXIDE 18.2 mmol/L (21.0-32.0); CREATININE - SERUM 1.1 mg/dL (0.6-1.3); POTASSIUM - SERUM 3.9 mmol/L (3.5-5.1); PROTEIN - SERUM 8.2 g/dL (6.4-8.2)
[2016-03-16 22:59] LABS: APPEARANCE CLEAR (CLEAR); COLOR YELLOW (YELLOW); LEUKOCYTE ESTERASE TRACE (NEGATIVE); NITRITE POSITIVE (NEGATIVE); PROTEIN 1+ mg/dL (NEGATIVE); SPECIFIC GRAVITY 1.025 (1.005-1.020)
[2016-03-16 23:00] LABS: BILIRUBIN NEGATIVE (NEGATIVE); GLUCOSE NEGATIVE (NEGATIVE); KETONE LARGE mg/dL (NEGATIVE); UROBILINOGEN NORMAL (NORMAL)
[2016-03-16 23:03] LABS: BACTERIA MANY /hpf (NONE SEEN); RED CELLS - URINE 0-5 /hpf (0-5)
[2016-05-10] MEDS ORDERED: TOPAMAX50 MG PO (10:41)
== END 2016-03-17 00:10 | disposition home or self-care (01) ==
LOC: D.ER 16:33
PROVIDERS: Emergency Medicine
DX: N10 Acute pyelonephritis (principal); J40 Bronchitis, not specified as acute or chronic; M94.0 Chondrocostal junction syndrome [Tietze]; E87.5 Hyperkalemia; F17.200 Nicotine dependence, unspecified, uncomplicated

== ENCOUNTER 2016-03-18 21:52 | Emergency (ER) | payer MEDICARE, MEDICAID ==
[2016-02-16 02:23] VITALS: BMI 31.4
[2016-03-19 00:51] LABS: HEMATOCRIT 40.5 % (36.0-48.0); HEMOGLOBIN 13.8 g/dL (12-16); LYMPHOCYTES 19.1 % (15-50); MCH 30.5 pg (26.0-34.0); MCHC 34.1 g/dL (31.0-37.0); MCV 89.4 fL (80.0-100.0); MEAN PLATELET VOLUME 9.8 fL (7.4-10.4); NEUTROPHILS 72.2 % (40-80); RBC 4.53 10x6/uL (4.00-5.40); RDW 15.7 % (11.5-14.5); WBC 10.8 10x3/uL (4.8-10.8)
[2016-03-19 00:52] LABS: PLATELET COUNT 240 10x3/uL (130-400)
[2016-05-10] MEDS ORDERED: TOPAMAX50 MG PO (10:41)
== END 2016-03-19 01:30 | disposition home or self-care (01) ==
LOC: D.ER 21:52
PROVIDERS: Nurse Practitioner Family
DX: R10.9 Unspecified abdominal pain (principal); R11.10 Vomiting, unspecified; M94.0 Chondrocostal junction syndrome [Tietze]; F17.200 Nicotine dependence, unspecified, uncomplicated

== ENCOUNTER 2016-03-22 09:24 | Observation (INO) | payer MEDICARE ==
[~2016-03-22] VITALS: Ht 170.2 cm; Wt 103.4 kg
[2016-03-22 10:07] VITALS: BP 121/75; Ht 170.2 cm; Wt 103.4 kg
[2016-03-22] MEDS ORDERED: HYDROCODONE-APA1 TAB PO (10:28)
[2016-03-22] MEDS ORDERED: ZANAFLEX6 MG PO (10:29)
[2016-03-22] MEDS ORDERED: NEURONTIN 300300 MG PO (10:31)
[2016-03-22] MEDS ORDERED: AMBIEN10 MG PO (10:36)
[2016-03-22] MEDS ORDERED: ZANAFLEX2 M1 PO (10:36)
[2016-03-22] MEDS ORDERED: ZOFRAN8 MG PO (10:38)
[2016-03-22 11:13] LABS: BASOPHILS 0.1 % (0.0-2.0); EOSINOPHILS 0 % (0-7); HEMATOCRIT 41.3 % (36.0-48.0); HEMOGLOBIN 13.7 g/dL (12-16); IMMATURE GRANULOCYTES 0.7 % (0-5); LYMPHOCYTES 12.3 % (15-50); MCH 30.1 pg (26.0-34.0); MCHC 33.2 g/dL (31.0-37.0); MCV 90.8 fL (80.0-100.0); MEAN PLATELET VOLUME 10.4 fL (7.4-10.4); MONOCYTES 5.7 % (2-11); NEUTROPHILS 81.2 % (40-80); RBC 4.55 10x6/uL (4.00-5.40); RDW 15.5 % (11.5-14.5); WBC 13.7 10x3/uL (4.8-10.8)
[2016-03-22 11:20] LABS: PLATELET COUNT 306 10x3/uL (130-400)
[2016-03-22 11:29] LABS: ALBUMIN 3.2 g/dL (3.4-5.0); ANION GAP 13.2 mmol/L (8-16); BILIRUBIN - TOTAL 0.2 mg/dL (0.2-1.3); CARBON DIOXIDE 25.1 mmol/L (21.0-32.0); POTASSIUM - SERUM 4.3 mmol/L (3.5-5.1); PROTEIN - SERUM 6.7 g/dL (6.4-8.2)
--- NOTE | 2016-03-22 12:19 | NUR ---
IV access-#22 introcan in right inner forearm x 3 attempts. Lorrie SheppardRN
--- NOTE | 2016-03-22 12:51 | NUR ---
MEDS AND FLUID NOW STARTED SINCE WE HAVE IV ACCESS. PT STATES SHE IS VERY NAUSEATED AND WAS EATING BUT BECAME TOO SICK TO FINISH. PT REC'D SOME IV ZOFRAN SO WE WILL CTM. NS INFUSING VIA R.WRIST @125ML/HR. PT WATCHING TV WITH MOTHER AT BEDSIDE. CL IN REACH, NO FURTHER NEEDS AT THIS TIME. WILL CPOC.
[2016-03-22 12:53] VITALS: BP 121/75
[2016-03-22 16:49] VITALS: BP 117/72
--- NOTE | 2016-03-22 20:05 | NUR ---
ZOFRAN 8MG IV ADM VIA RT WRIST IV CATH FOR C/O NAUSEA. KARLOS INJ WELL. NS INFUSING W/O DIFF VIA PUMP AT 125CC/HR. KARLOS WELL.ON RA. RESP UNLAB. RECEIVING LOVENOX INJECTIONS. NO SCDS IN PLACE. UP AD IVETT W/O DIFF. AT BEDSIDE. HOB UP SR UP X2, C/L IN REACH. CONTINUE TO MONITOR.
[2016-03-22 21:47] VITALS: BP 143/56
[2016-03-22 22:02] LABS: APPEARANCE CLEAR (CLEAR); COLOR YELLOW (YELLOW)
[2016-03-22 22:03] LABS: BILIRUBIN NEGATIVE (NEGATIVE); GLUCOSE NEGATIVE (NEGATIVE); KETONE NEGATIVE (NEGATIVE); LEUKOCYTE ESTERASE NEGATIVE (NEGATIVE); NITRITE NEGATIVE (NEGATIVE); PROTEIN NEGATIVE (NEGATIVE); SPECIFIC GRAVITY 1.015 (1.005-1.020); UROBILINOGEN NORMAL (NORMAL)
--- NOTE | 2016-03-23 00:20 | NUR ---
IV SITE SWOLLEN AND RED, FLUID STOPPED. ATTEMPTS X3 UNSUCCESSFUL, ICU NURSE NOTIFIED OF NEED. AFTER 3 FAILED ATTEMPTS, SECOND ICU NURSE ABLE TO RESITE IV TO RIGHT HAND USING 22GA IV CATH. KARLOS WELL. NS RESTARTED VIA PUMP W/O DIFF. C/L IN REACH. CONTINUE TO MONITOR.
[2016-03-23 01:44] VITALS: BP 104/68
[2016-03-23 06:10] VITALS: BP 119/72
[2016-03-23 08:08] VITALS: BP 100/68
--- NOTE | 2016-03-23 11:28 | NUR ---
DISCHARGE TEACHING DONE AND PAPERS SIGNED. D/C PTS R.HAND PIV WITH CATHETER TIP FULLY INTACT. PT STATES SHE IS FEELING BETTER. SHE HAS HAD NORMAL FLUID INTAKE AND IS EATING JUST FINE. NO COUGH OBSERVED BUT SHE STATES SHE HAS ONE. PT NOW WAITING ON A RIDE FOR DISCHARGE. WILL CTM.
[2016-05-10] MEDS ORDERED: TOPAMAX50 MG PO (10:41)
== END 2016-03-23 12:34 | disposition home or self-care (01) ==
LOC: D.SDCHOLD 09:24 → EDSTATUS 09:27 → OBSVTIME 09:28 → D.M2 09:28
PROVIDERS: ADMIT Legal Medicine
DX: E86.0 Dehydration (principal); R05 Cough; D72.829 Elevated white blood cell count, unspecified

== ENCOUNTER 2016-03-29 16:46 | Emergency (ER) | payer MEDICARE ==
[2016-03-22 10:07] VITALS: BMI 32.9
[~2016-03-29 16:46] MED LIST changes: +HYDROCODONE-APA1 TAB PO; +NEURONTIN 300300 MG PO; +ZANAFLEX2 M1 PO; +ZANAFLEX6 MG PO; +ZOFRAN8 MG PO
[2016-03-29 19:17] LABS: BASOPHILS 0.1 % (0.0-2.0); EOSINOPHILS 3.9 % (0-7); HEMATOCRIT 44.9 % (36.0-48.0); HEMOGLOBIN 14.8 g/dL (12-16); IMMATURE GRANULOCYTES 0.2 % (0-5); LYMPHOCYTES 33.4 % (15-50); MCH 30.3 pg (26.0-34.0); MCV 91.8 fL (80.0-100.0); MEAN PLATELET VOLUME 10.4 fL (7.4-10.4); MONOCYTES 8.8 % (2-11); NEUTROPHILS 53.6 % (40-80); PLATELET COUNT 322 10x3/uL (130-400); RBC 4.89 10x6/uL (4.00-5.40); RDW 15.2 % (11.5-14.5); WBC 9.5 10x3/uL (4.8-10.8)
[2016-03-29 19:34] LABS: ALBUMIN 3.6 g/dL (3.4-5.0); BILIRUBIN - TOTAL 0.4 mg/dL (0.2-1.3); PROTEIN - SERUM 7.4 g/dL (6.4-8.2)
[2016-03-29 20:24] LABS: ANION GAP 15.9 mmol/L (8-16); CALCIUM 9.4 mg/dL (8.5-10.1); CARBON DIOXIDE 25.3 mmol/L (21.0-32.0); CREATININE - SERUM 0.9 mg/dL (0.6-1.3); POTASSIUM - SERUM 4.2 mmol/L (3.5-5.1)
[2016-05-10] MEDS ORDERED: TOPAMAX50 MG PO (10:41)
== END 2016-03-30 01:30 | disposition home or self-care (01) ==
LOC: D.ER 16:46
PROVIDERS: Emergency Medicine
DX: R55 Syncope and collapse (principal); S00.03XA Contusion of scalp, initial encounter; W18.09XA Striking against other object with subsequent fall, initial encounter; Y93.89 Activity, other specified; Y92.019 Unspecified place in single-family (private) house as the place of occurrence of the external cause; M94.0 Chondrocostal junction syndrome [Tietze]; E87.5 Hyperkalemia; F17.200 Nicotine dependence, unspecified, uncomplicated

== ENCOUNTER 2016-04-07 12:34 | Inpatient (IN) | payer MEDICARE ==
[~2016-04-07] VITALS: Ht 170.2 cm; Wt 105.5 kg
--- NOTE | 2016-04-07 12:48 | NUR ---
1246-RECEIVED DIRECT ADMIT TO ROOM WITH COMPLAINTS OF NAUSEA AND VOMITING. PATIENT IN RESTROOM CHANGING INTO GOWN AND REQUESTING PHNEERGAN. I TOLD HER THAT I NEEDED ORDERS AND TO GET AN IV ON HER GOING. WILL ADMIT.
[2016-04-07 13:01] VITALS: BP 150/98; BMI 31.4
--- NOTE | 2016-04-07 13:56 | NUR ---
TO RADIOLOGY VIA WHEELCHAIR.
--- NOTE | 2016-04-07 14:11 | NUR ---
RETURNS FROM RADIOLOGY.
[2016-04-07 14:53] LABS: BASOPHILS 0.1 % (0.0-2.0); EOSINOPHILS 0.5 % (0-7); HEMATOCRIT 46.6 % (36.0-48.0); HEMOGLOBIN 15.8 g/dL (12-16); IMMATURE GRANULOCYTES 0.2 % (0-5); LYMPHOCYTES 19.5 % (15-50); MCH 30.3 pg (26.0-34.0); MCHC 33.9 g/dL (31.0-37.0); MCV 89.3 fL (80.0-100.0); MEAN PLATELET VOLUME 11.1 fL (7.4-10.4); MONOCYTES 7.5 % (2-11); NEUTROPHILS 72.2 % (40-80); PLATELET COUNT 278 10x3/uL (130-400); RBC 5.22 10x6/uL (4.00-5.40); RDW 14.6 % (11.5-14.5); WBC 10.5 10x3/uL (4.8-10.8)
[2016-04-07 15:22] LABS: HELICOBACTER PYLORI IGG NEGATIVE (NEGATIVE)
[2016-04-07 15:24] LABS: ALBUMIN 3.9 g/dL (3.4-5.0); AMYLASE - SERUM 35 U/L (25-115); ANION GAP 16.2 mmol/L (8-16); BILIRUBIN - TOTAL 0.46 mg/dL (0.2-1.3); CALCIUM 8.5 mg/dL (8.5-10.1); CARBON DIOXIDE 25.5 mmol/L (21.0-32.0); CREATININE - SERUM 0.9 mg/dL (0.6-1.3); LIPASE 106 U/L (73-393); POTASSIUM - SERUM 3.7 mmol/L (3.5-5.1); PROTEIN - SERUM 7.1 g/dL (6.4-8.2)
[2016-04-07 15:28] VITALS: BP 159/95
--- NOTE | 2016-04-07 15:43 | NUR ---
ZOFRAN DRIP STARTED AT 4.7 CC ORDERED.
--- NOTE | 2016-04-07 15:51 | NUR ---
PATIENT IS REQUESTING AN EGGCRATE MATTRESS. CALLED [facility] TO GET ONE.
--- NOTE | 2016-04-07 15:56 | NUR ---
EGGCRATE TAKEN TO ROOM AND WILL CHANGE TO BED WHEN PATIENT GETS UP TO VOID.
--- NOTE | 2016-04-07 16:25 | NUR ---
PATIENT SEEMS TO BE RESTING WITHOUT NAUSEA, EYES ARE CLOSED, AND APPEARS PAINFREE. WILL CONTINUE TO MONITOR.
--- NOTE | 2016-04-07 19:43 | NUR ---
URINE OBTAINED FOR UA C&S AND SENT TO LAB.
[2016-04-07 20:04] VITALS: BP 143/89
--- NOTE | 2016-04-07 20:45 | NUR ---
MEDICATED WITH PHENERGAN 25MG IM IN RIGHT HIP. WILL MONITOR.
--- NOTE | 2016-04-07 22:00 | NUR ---
PT SAYS SHE IS FEELING MUCH BETTER NOW. SCHEDULED HS MEDS HAVE BEEN GIVEN. IVF D5NS @ 100ML/HR AND ZOFRAN @ 4.7ML/HR INFUSING TO RIGHT HAND. WILL MONITOR. CPOC.
[2016-04-07 22:27] LABS: APPEARANCE HAZY (CLEAR); BILIRUBIN NEGATIVE (NEGATIVE); COLOR DK YELLOW (YELLOW); GLUCOSE NEGATIVE (NEGATIVE); KETONE NEGATIVE (NEGATIVE); LEUKOCYTE ESTERASE 1+ (NEGATIVE); NITRITE NEGATIVE (NEGATIVE); PROTEIN TRACE mg/dL (NEGATIVE); UROBILINOGEN NORMAL (NORMAL)
[2016-04-07 22:29] LABS: BACTERIA MANY /hpf (NONE SEEN)
[2016-04-08 00:38] VITALS: BP 107/54
--- NOTE | 2016-04-08 03:21 | NUR ---
PT C/O HEADACHE AND THAT SHE HAD TO CHANGE GOWNS BECAUSE HER OTHER WAS WET WITH SWEAT. PROVIDED TYLENOL FOR HEADACHE AND EXPLAINED THAT EARLIER TEMP HAD BEEN 100.0 AND IS NOW NORMAL SO THAT IS WHY HER GOWN WAS WET. WILL MONITOR.
[2016-04-08 05:04] VITALS: BP 115/69
--- NOTE | 2016-04-08 07:15 | NUR ---
PT SITTING UP IN BED CO NAUSEA IS ON ZOFRAN DRIP. WILL CONT TO MONITOR.
--- NOTE | 2016-04-08 08:30 | NUR ---
PT STILL CO NAUSEA. HAS PRN PHENEGRAN Q6. NOT TIME YET UNTIL 2618. PAGED DR GRULLON.
[2016-04-08 08:33] VITALS: BP 126/81
--- NOTE | 2016-04-08 09:01 | NUR ---
DR GRULLON CALLED BACK AND GAVE OK TO ORDER ONE TIME DOSE OF PHEN. ORDERED AND GIVEN.
--- NOTE | 2016-04-08 09:18 | NUR ---
PT HAS HAD HER CT OF ABDOMEN. TECH FROM XRAY SAID THEY CANT DO THE UPPER GI SERIES UNTIL TOMORROW.
[2016-04-08 12:05] VITALS: BP 177/94
[2016-04-08 12:40] VITALS: Ht 170.2 cm; Wt 105.5 kg
--- NOTE | 2016-04-08 15:24 | NUR ---
Patient Name: FRANCISCO MO Admission Status: Elective Accout number: [id number] Admission Date: 04-07-2016 : 1965 Admission Diagnosis: Attending: TANIYA Current LOS: 1 Anticipated DC Date: Planned Disposition: Home Primary Insurance: MEDICARE A & B Discharge Planning Comments: * Is the patient Alert and Oriented? Yes 0 * How many steps to enter\exit or inside your home? 3-4 0 * PCP DR. GRULLON 0 * Pharmacy [facility] 0 * Preadmission Environment Home with Family 0 * ADLs Independent 0 * Equipment Nebulizer 0 * Other Equipment NO MEDICAL EQUIPMENT PROVIDER PREFERENCE 0 * List name and contact numbers for known caregivers / representatives who currently or will assist patient after discharge: BARBARA MO, SPOUSE, 0 * Community resources currently utilized None 0 * Please name any agencies selected above. NONE 0 * Additional services required to return to the preadmission environment? No 0 * Can the patient safely return to the preadmission environment? Yes 0 * Has this patient been hospitalized within the prior 30 days at any hospital? No 0 CM MET WITH PT IN ROOM TO DISCUSS DISCHARGE PLANNING AND NEEDS. PT REPORTS LIVING AT HOME INDEPENDENTLY WITH HER SPOUSE. PT HAS A NEBULIZER THAT SHE USES AND NO MEDICAL EQUIPMENT PROVIDER PREFERNCE. PT HAS NO OUTSIDE SERVICES ASSISTING IN THE HOME. CM DISCUSSED AVAILABILITY OF HOME HEALTH, REHAB SERVICES AND MEDICAL EQUIPMENT. PT DENIES DISCHARGE NEEDS, REPORTS HER SPOUSE WILL PICK HER UP FOR DISCHARGE HOME. Tag Maker: Prateek Bruner
[2016-04-08 16:27] VITALS: BP 166/98
--- NOTE | 2016-04-08 16:31 | NUR ---
PT SITTING UP IN BED DENIES NEEDS WILL CONT TO MONITOR.
--- NOTE | 2016-04-08 19:42 | NUR ---
CONSUMER ADVOCATE AT BEDSIDE TO OBTAIN VITALS, CALL LIGHT IN REACH. WILL CONTINUE WITH PLAN OF CARE.
[2016-04-08 20:00] VITALS: BP 121/75
--- NOTE | 2016-04-08 20:07 | NUR ---
RESTING IN BED. ALERT ORIENTED CONVERSANT. DENIES NEEDS. NO ACUTE DISTRESS NOTED. IV WRAPPED AND SALINE LOCKED SO PT COULD TAKE SHOWER. NO BALANCE OR GAIT PROBLEMS NOTED.
[2016-04-09 04:00] VITALS: BP 116/77
--- NOTE | 2016-04-09 07:37 | NUR ---
PATIENT REPORTS THAT SHE IS FEELING BETTER NOW THAT SHE HAS HAD HER PHENERGAN. NPO STATUS AT THIS TIME FOR A CT SCAN. NO NAUSEA AT PRESENT TIME. ON ROOM AIR. D5NS INFUSING TO RIGHT HAND AT 100/HR ALONG WITH A ZOFRAN DRIP AT 4.7 CC/HR. WILL CONTINUE TO MONITOR.
--- NOTE | 2016-04-09 08:57 | NUR ---
TO RADIOLOGY VIA WHEELCHAIR.
[2016-04-09 10:00] VITALS: BP 122/82
--- NOTE | 2016-04-09 10:53 | NUR ---
RETURNS FROM XRAY.
--- NOTE | 2016-04-09 11:01 | NUR ---
REQUESTING LARGE GLASS OF WATER AND LEMON CAMPO, GIVEN.
--- NOTE | 2016-04-09 11:16 | NUR ---
TALKING TO MOTHER, LAUGHING. REQUESTING PHENERGAN. GIVEN IM TO RIGHT HIP. WILL CONTINUE TO MONITOR.
[2016-04-09 11:41] VITALS: BP 133/77
--- NOTE | 2016-04-09 13:07 | NUR ---
PATIENT STATES THAT SHE IS PASSING BARIUM ALREADY IN HER STOOL. STATES THAT SHE IS THROWING UP, NOTHING SEEN AT THIS TIME. NEW ORDERS FOR REGLAN, GIVEN. UNABLE TO GIVE ANYMORE PHENERGAN AT THIS TIME. WILL CONTINUE TO MONITOR.
[2016-04-09 15:43] VITALS: BP 173/85
--- NOTE | 2016-04-09 18:22 | NUR ---
COMPLAINTS OF NAUSEA, PHENERGAN GIVEN TO LEFT HIP .
[2016-04-09 21:01] VITALS: BP 184/99
--- NOTE | 2016-04-09 21:07 | NUR ---
PT LAYING IN BED NO DISTRESS OBSERVED CALL LIGHT IN REACH SRX2 BED LOW AND LOCKED WILL MONITOR
--- NOTE | 2016-04-09 23:04 | NUR ---
PT REQUESTING SOME BROTH AND PROVIDED CHICKEN BROTH TO PT AT THIS TIME PT STATED " THE NAUSEA IS FINALLY GONE"
[2016-04-10 01:09] VITALS: BP 100/60
[2016-04-10 05:23] VITALS: BP 124/70
--- NOTE | 2016-04-10 07:23 | NUR ---
RECEIVED PT REPORT. WILL CONTINUE PLAN OF CARE. NO OTHER NEEDS AT THIS ITAZ. WILL CONTINUE TO [facility].
[2016-04-10 08:09] VITALS: BP 130/87
--- NOTE | 2016-04-10 10:39 | NUR ---
PT IS ALERT. ASSESSMENT DONE PER FLOWSHEET. NO CO PAIN AT THIS TIME. WILL CONTINUE TO MONTIOR.
[2016-04-10 11:36] VITALS: BP 104/82
--- NOTE | 2016-04-10 13:50 | NUR ---
NO SS IF DISTRESS AT THIS TIME. WILL CONTINUE TO MONITOR. PHENERGAN IM GIVEN FOR "WANTING TO STAY AHEAD OF THIS" NO OTHER NEEDS AT THIS TIME. WILL CONTINUE TO MOINTOR.
--- NOTE | 2016-04-10 14:25 | NUR ---
PT GIVEN TYLENOL ES FOR HEADACHE. NO FEVER AT THIS TIME. WILL CONTINUE TO MONITOR
[2016-04-10 15:37] VITALS: BP 97/47
--- NOTE | 2016-04-10 19:35 | NUR ---
PT. IN BED WITH HOB UP FOR COMFORT AND IS WATCHING TV. PT. REQUESTING HER PHENERGAN SHOT NOW TO KEEP HER NAUSEA CONTROLLED. ASSESSMENT COMPLETED. IV D5NS AND ZOFRAN INFUSING VIA PUMP WITHOUT ANY ALARMS TO RT. FOREARM. CALL LIGHT WITHIN REACH.
[2016-04-10 20:04] VITALS: BP 132/69
--- NOTE | 2016-04-10 22:03 | NUR ---
PT. LYING ON HER LEFT SIDE WITH HOB UP FOR COMFORT WITH EYES CLOSED AND RESP. EVEN. IV'S INFUSING VIA PUMP WITHOUT ANY ALARMS OF D5NS/ZOFRAN. CALL LIGHT WITHIN REACH.
--- NOTE | 2016-04-11 00:07 | NUR ---
PT. SITTING UP IN BED WITH HOB UP FOR COMFORT C/O NAUSEA AND WAITING FOR HER NEXT DOSE OF PHENERGAN, WHICH ISN'T UNTIL 0145. CALL LIGHT WITHIN REACH.
[2016-04-11 00:30] VITALS: BP 142/76
--- NOTE | 2016-04-11 02:03 | NUR ---
PT. IN BED WITH HOB UP FOR COMFORT WITH EYES CLOSED AND RESP. DEEP AND EVEN. CALL LIGHT WITHIN REACH. IV'S INFUSING WITHOUT ANY PUMP ALARMS.
--- NOTE | 2016-04-11 04:05 | NUR ---
PT. IN BED WITH HOB UP FOR COMFORT AND IS WATCHING TV. NO VOICED NEEDS AT THIS TIME. IV'S INFUSING VIA PUMP WITHOUT ANY ALARMS AND SHE HAS HER CALL LIGHT WITHIN REACH.
[2016-04-11 04:30] VITALS: BP 105/62
--- NOTE | 2016-04-11 06:59 | NUR ---
RECEIVED PT REPORT. PT HAS BEEN HEARD TO STATE "I AM NOT NAUSEAD BUT I NEED PHENERGAN TO STAY AHEAD OF THIS." WILL CONTINUE PLAN OF CARE. NO OTHER NEEDS.
[2016-04-11 07:34] VITALS: BP 132/86
--- NOTE | 2016-04-11 10:37 | NUR ---
PT IS ALERT. ASSESSMENT DONE PER FLOWSHEET. NO OTHER NEEDS AT THIS TIME. WILL CONTINUE TO MOTNIOR.
[2016-04-11 11:36] VITALS: BP 122/75
[2016-04-11 15:32] VITALS: BP 121/76
--- NOTE | 2016-04-11 18:41 | NUR ---
PAGED DR GRULLON TO INFORM HIM THAT PT JUST FLUSHED 1000 CC. OF 24 HR URINE STARTED AT 930 THIS AM DOWN THE TOILET. I HAD DONE PT TEACHING AND DISCUSSED WHAT WE WERE NEEDING TO ACHEIVE AND SHE STATED UNDERSTANDING AT THAT POINT. PT STATED AT THIS POINT "I DID NOT KNOW WE WERE DOING THAT." I REMEINDED HER THAT WE HAD DISCUSSED THAT EARLIER AND SO SHE SAID SHE WOULD START KEEPING IT. AWAITING PAGE BACK
--- NOTE | 2016-04-11 19:40 | NUR ---
ASSESSMENT COMPLETE, A&O, RESPERATIONS EVEN ON RA. IV TO RIGHT HAND WITH D5 1/2 NS INFUSING AT 100 AND ZOFRAN DRIP INFUSING AT 4.7, SITE CLEAN AND DRY. PT SITTING UPI N BED TALKING ON PHONE, DENIES PAIN OR NEEDS, BED LOW, CL IN REACH, WILL CONT TO MONITOR.
[2016-04-11 20:36] VITALS: BP 154/55
--- NOTE | 2016-04-11 21:42 | NUR ---
HS MEDS GIVEN, PHENERGAN 25 MG GIVEN IM AT PT REQUEST. PTS AT BED SIDE, BED LOW, CL IN REACH, WILL CONT TO MONITOR.
--- NOTE | 2016-04-12 00:30 | NUR ---
EP TECH AT BEDSIDE FOR VS. NEEDS ADDRESSED AT THIS TIME. CALL LIGHT IN REACH. WILL CONT TO MONITOR.
[2016-04-12 01:24] VITALS: BP 105/54
--- NOTE | 2016-04-12 02:41 | NUR ---
RESTING WITH EYES CLOSED, RESPERATIONS EVEN. NO S/SIDSTRESS NOTED. WILL CONT TO MONITOR.
--- NOTE | 2016-04-12 04:06 | NUR ---
PHENERGAN 25 MG GIVEN TO RIGTH DORSAL GLUT FOR C/O NAUSEA.
[2016-04-12 06:26] VITALS: BP 157/87
--- NOTE | 2016-04-12 07:32 | NUR ---
AM ROUNDING- PT SITTING UP IN BED WITH EYES OPEN RESTING. PT IS ALERT AND ORIENTED. ON ROOM AIR. IV SEEN TO RIGHT HAND WITH D5 1/2 NS RUNNING AT 100CC AND ZOFRAN RUNNING AT 4.7CC. PER REPORT PT IS UP AD IVETT. NO MONITOR. PT IS CURRENTLY DOING A 24 HOUR URINE COLLECTION THAT PER REPORT FROM PRESENTATION TEAM MEMBER NURSE FALGUNI, WITH BE DONE AT 1900 TODAY. PT HAS NO C/O OF PAIN OR NAUSEA AT THIS TIME. WILL CONTINUE TO MONITOR.
[2016-04-12 07:43] VITALS: BP 163/88
[2016-04-12 12:07] VITALS: BP 123/77
[2016-04-12 16:15] VITALS: BP 129/65
--- NOTE | 2016-04-12 17:03 | NUR ---
1645- DEA JOHNSON CAME TO ME AND STATED THAT PTS IV HAD COME OUT. WENT INTO PTS ROOM AND PTS IV CATHETER WAS HANGING OUT. TOOK PTS IV CATHETER OUT WITH CATH TIP INTACT. TOLERATED WELL. RESITED PT X1 STICK WITH 20G IV CATHETER TO LEFT HAND. TOLERATED WELL. HOOKED PTS IV CATHETER BACK UP AND RESTARTED IV FLUIDS ORDERED. WILL CONTINUE TO MONITOR.
--- NOTE | 2016-04-12 18:50 | NUR ---
PT SITTING UP IN BED WITH EYES OPEN RESTING. IS AT BEDSIDE. NO NEED AT CURRENT TIME. WILL CONTINUE TO MONITOR.
[2016-04-12 20:00] VITALS: BP 157/86
--- NOTE | 2016-04-12 21:40 | NUR ---
PT AWAKE, ALERT, ORIENTED, REQUESTING PRN PHENERGAN IM FOR NAUSEA, EVEN WITH THE ZOFRAN GTT RUNNING CONTINUOUSLY. PT DENIES ANY OTHER NEEDS. AT BEDSIDE. STATES HE IS FRUSTRATED WITH PTS CONDITION AND THE TIME IT IS TAKING TO RECEIVE A DX FOR HER RECURRENT, AND CHRONIC N/V. I DID PT TEACHING ABOUT REFLUX PRECAUTIONS, DIETARY RESTRICTIONS WITH FAT, FRIED, SPICY, AND SAUCY FOODS, LIFESTYLE CHANGES R/T INCREASED REFLUX, WE DISCUSSED HER HIATAL HERNIA, AND DISCUSSED OTC PPI'S AND HAVE ENCOURAGED PT TO DISCUSS WITH DR. GRULLON ABOUT OUTPT RX/TX FOR PROTONIX FOR REFLUX. PT STATES SHE DOES NOT TAKE ANYTHING ON AN OUTPT BASIS FOR REFLUX AND HAS NOT BEEN DOING SO. I DID GIVE IM PHENERGAN AND WILL CONTINUE TO MONITOR CLOSELY.
[2016-04-13] VITALS: BP 141/77
--- NOTE | 2016-04-13 01:36 | NUR ---
PT LYING IN BED, HOB 25 DEGREES, EYES CLOSED, RESPIRATIONS EVEN AND UNLABORED. CONTINUE TO MONITOR CLOSELY.
--- NOTE | 2016-04-13 02:16 | NUR ---
PT CALLED C/O NAUSEA AND REQUESTING HER PRN PHENERGAN. I INFORMED PT THAT DR. GRULLON HAD CHANGED THE ORDER TO Q 12 HOURS PRN AND THAT SHE COULD HAVE IT @ 0830. I OFFERED PT THE PRN GI COCKTAIL, IN WHICH SHE STATED SHE WOULD LIKE IT AND THAT IT HELPS WITH THE BURNING IN HER THROAT. THEN PT REQUESTED 2 ORANGE SHERBERTS AND A LEMON PAIMIUT SO SHE CAN MAKE A FLOAT. I REMINDED PT THAT SODA'S INCREASE REFLUX S/S AND THAT SHE NEEDS TO LIMIT HER INTAKE. PT AGREED THAT SHE WOULD. DENIES ANY OTHER NEEDS. CONTINUE TO MONITOR CLOSELY.
[2016-04-13 04:00] VITALS: BP 128/77
--- NOTE | 2016-04-13 07:56 | NUR ---
AM ROUNDING- PT SITTING UP IN BED WITH EYES OPEN RESTING. PT IS ALERT AND ORIENTED. IV SEEN TO LEFT HAND WITH D5 1/2NS RUNNING AT 100CC AND ZOFRAN RUNNING AT 4.7CC. ON ROOM AIR. PT IS UP AD IVETT. NO NEED AT CURRENT TIME. WILL CONTINUE TO MONITOR.
[2016-04-13 08:01] VITALS: BP 132/78
[2016-04-13 12:15] VITALS: BP 160/83
--- NOTE | 2016-04-13 13:57 | NUR ---
Nutrition follow-up: Diet: Full liquids PO intake ~100% of meals Labs reviewed Wt: 229# +BM Pt is still c/o nausea Will continue to provide food choices with full liquid menus and honor food preferences within diet restrictions. RDN following.
[2016-04-13 15:36] VITALS: BP 128/71
--- NOTE | 2016-04-13 18:07 | NUR ---
PT SITTING UP IN BED WITH EYES OPEN WATCHING TV. DENIES ANY NEED AT CURRENT TIME. WILL CONTINUE TO MONITOR.
--- NOTE | 2016-04-13 19:30 | NUR ---
RECEIVED REPORT, IV-D5 NS-100-L.HAND, [id number]-TL, VISITING WITH , DENIES ANY NEEDS, CALL LIGHT IN REACH, BED IS LOW, SRX2, WILL CONTINUE TO MONITOR
[2016-04-13 21:04] VITALS: BP 158/75
[2016-04-14 01:48] VITALS: BP 170/90
--- NOTE | 2016-04-14 03:14 | NUR ---
ASSESSMENT COMPLETE, PT SLEEPING, AT BEDSIDE, CALL LIGHT IN REACH
--- NOTE | 2016-04-14 04:00 | NUR ---
ROD BENDING MACHINE OPERATOR AT BEDSIDE FOR VS. CONT TO MONITOR.
[2016-04-14 05:05] VITALS: BP 135/76
[2016-04-14 08:31] VITALS: BP 146/86
--- NOTE | 2016-04-14 11:26 | NUR ---
ALERT AND ORIENTED X4. SITTING UP IN BED. COMPLAINS OF NAUSEA. NO EVIDENCE OF VOMITING. LT HAND IV PULLED OUT TIP INTACT. UNSUCCESSFUL RESITE X3. NOTIFY . NO IV NEEDED PER . PLAN TO DC HOME TODAY. CONTINUE PLAN OF CARE. ENCOURAGE DRINKING FLUIDS. DENIES SOB OR PAIN. BED LOCKED AND LOW. CALL LIGHT IN REACH. TWO SIDERAILS UP. RECIEVES LOVENOX. NO SCDs. SINUS RHYTHM 61bpm ON TELEMETRY.
[2016-04-14 12:00] VITALS: BP 152/87
--- NOTE | 2016-04-14 12:01 | NUR ---
Patient Name: FRANCISCO MO Encounter No: [id number] : 1965 Primary Insurance: MEDICARE A & B Anticipated DC Date: 04-14-2016 Planned Disposition: Home DCP follow-up note: CM MET WITH PT IN ROOM TO DISCUSS DISCHARGE NEEDS AND PLANNING. CM DISCUSSED AVAILABILITY OF HOME HEALTH, REHAB SERVICES AND MEDICAL EQUIPMENT. PT DENIES DISCHARGE NEEDS. SPOUSE TO TRANSPORT HOME AT DISCHARGE AND WILL BUG TRIMMER PT AFTER HE GETS OFF FROM WORK THIS EVENING. IMPORTANT MESSAGE FROM MEDICARE PROVIDED AND EXPLAINED. Prateek Bruner, CASE MANAGEMENT
--- NOTE | 2016-04-14 14:00 | NUR ---
ALERT AND ORIENTED X4. SITTING UP IN BED. AT BEDSIDE. DISCHARGE INSTRUCTIONS GIVEN VERBALLY AND WRITTEN. DISCHARGE PAPERS SIGNED ON CHART. GETS DRESSED INDEPENDENTLY. GAIT STEADY. ESCORT TO RIDE VIA WHEELCHAIR. REMAINS FREE FROM INJURY.
[2016-04-20 12:16] LABS: CORTISOL FREE - 24HR <4 ug/24 hr (0-50); CORTISOL FREE - UR <1 ug/L (Undefined)
[2016-05-10] MEDS ORDERED: TOPAMAX50 MG PO (10:41)
== END 2016-04-14 14:06 | disposition home or self-care (01) | DRG 392 ==
LOC: D.M2 12:34
PROVIDERS: Internal Medicine Gastroenterology; ADMIT Legal Medicine
DX: R11.2 Nausea with vomiting, unspecified (principal); E86.0 Dehydration; R10.9 Unspecified abdominal pain; M54.2 Cervicalgia; G43.909 Migraine, unspecified, not intractable, without status migrainosus; M54.9 Dorsalgia, unspecified; G89.29 Other chronic pain

== ENCOUNTER 2016-05-04 11:06 | Inpatient (IN) | payer MEDICARE ==
[~2016-05-04] VITALS: Ht 170.2 cm; Wt 97.3 kg
[2016-05-04 12:19] VITALS: BP 108/74; BMI 32.2
--- NOTE | 2016-05-04 12:25 | NUR ---
PT IS ALERT. ASSESSMENT DONE PER FLOWSHEET. NO OTHER NEEDS.
[2016-05-04 13:13] LABS: BASOPHILS 0.1 % (0.0-2.0); EOSINOPHILS 1.2 % (0-7); HEMATOCRIT 43.6 % (36.0-48.0); HEMOGLOBIN 14.2 g/dL (12-16); IMMATURE GRANULOCYTES 0.1 % (0-5); MCH 30.1 pg (26.0-34.0); MCHC 32.6 g/dL (31.0-37.0); MCV 92.6 fL (80.0-100.0); MEAN PLATELET VOLUME 10.7 fL (7.4-10.4); MONOCYTES 9.4 % (2-11); NEUTROPHILS 50.2 % (40-80); PLATELET COUNT 273 10x3/uL (130-400); RBC 4.71 10x6/uL (4.00-5.40); WBC 7.4 10x3/uL (4.8-10.8)
[2016-05-04 13:16] LABS: ALBUMIN 3.9 g/dL (3.4-5.0); ALKALINE PHOSPHATASE 80 U/L (46-116); ALT (SGPT) 33 U/L (10-68); BILIRUBIN - TOTAL 0.37 mg/dL (0.2-1.3); CALC OSMOLALITY 278 mosm/kg (275-300); CALCIUM 9.3 mg/dL (8.5-10.1); CARBON DIOXIDE 23.4 mmol/L (21.0-32.0); CHLORIDE - SERUM 104 mmol/L (98-107); CREATININE - SERUM 0.8 mg/dL (0.6-1.3); GLUCOSE 101 mg/dL (74-106); POTASSIUM - SERUM 3.8 mmol/L (3.5-5.1); PROTEIN - SERUM 6.8 g/dL (6.4-8.2); SODIUM 141 mmol/L (136-145); UREA NITROGEN 8 mg/dL (7-18); eGFR NON AFRICAN AMERICAN 80 mL/min (90-120)
--- NOTE | 2016-05-04 13:40 | NUR ---
SPECIMEN CUP TAKEN TO PT. EDUCATED PT ON MID-STREAM URINE COLLECTION. PT VERBALIZED UNDERSTANDING.
[2016-05-04 13:58] VITALS: Ht 170.2 cm; Wt 97.3 kg
--- NOTE | 2016-05-04 15:04 | NUR ---
PT C/O HEADACHE 10/31. NORCO10/325MG PO GIVEN. DR. GRULLON PAGED FOR STRONGER PAIN MED PER PT REQUEST. PT A/O. DENIES OTHER NEEDS AT THIS TIME. CALL LIGHT WITH IN REACH. WILL CONT. TO MONITOR.
[2016-05-04 15:42] VITALS: BP 126/83
--- NOTE | 2016-05-04 18:30 | NUR ---
PT SITTING UP IN BED, A/O, WATCHING TV, REQUEST LEMON SUQUAMISH SODA AND ORANGE SHERBET. C/O HEADACHE. WANTS IV PAIN MEDS. NURSE HAS PAGED DR. GRULLON X2, AND HE HAS NOT CALLED BACK. WILL CONT. TO MONITOR.
--- NOTE | 2016-05-04 20:23 | NUR ---
PT RESTING IN BED WITH NO DISTRESS. C/O HEADACHE/PAIN. EXPLAINED NO RETURN CALL TO DAY SHIFT PER DR GRULLON. IV NS @ 125ML/HR INFUSING TO RIGHT HAND. SEE COMPLETED SHIFT ASSESSMENT. REPAGE DR GRULLON AT 2014 RETURN CALL FROM HIS OFFICE AT 2024 SAYING HE WAS CURRENTLY MAKING ROUNDS.
--- NOTE | 2016-05-04 20:41 | NUR ---
RETURN CALL FROM DR GRULLON AND HE DOES NOT WANT TO ADD ANY TYPE OF PAIN MED AT THIS TIME AND FOR PT TO CONTINUE IVF AND CURRENT REGIMEN AND HE WILL SEE HER ON ROUNDS TOMORROW.
[2016-05-04 21:03] VITALS: BP 100/71
--- NOTE | 2016-05-04 21:15 | NUR ---
NEW ORDER NOTED FOR UDS, SPOKE WITH LAB AND THEY SHOULD BE ABLE TO DO IT OFF COLLECTED URINE THAT WAS JUST TURNED IN.
--- NOTE | 2016-05-04 21:27 | NUR ---
BEDTIME MEDS GIVEN. PHENERGAN BY MOUTH TO KEEP NAUSEA UNDER CONTROL. NORCO FOR HEADACHE/MIGRAINE. EXPLAINED THAT HAD SPOKEN WITH DR GRULLON AND NO NEW MEDS WERE ORDERED. WILL MONITOR.
[2016-05-04 21:46] LABS: APPEARANCE CLEAR (CLEAR); BILIRUBIN NEGATIVE (NEGATIVE); COLOR YELLOW (YELLOW); GLUCOSE NEGATIVE (NEGATIVE); KETONE NEGATIVE (NEGATIVE); LEUKOCYTE ESTERASE NEGATIVE (NEGATIVE); NITRITE NEGATIVE (NEGATIVE); PROTEIN NEGATIVE (NEGATIVE); UROBILINOGEN NORMAL (NORMAL)
[2016-05-04 22:11] LABS: UDS - AMPHET NEGATIVE QUAL (NEGATIVE); UDS - BARB POSITIVE QUAL (NEGATIVE); UDS - BENZO POSITIVE QUAL (NEGATIVE); UDS - COCAINE NEGATIVE QUAL (NEGATIVE); UDS - METH NEGATIVE QUAL (NEGATIVE); UDS - OPIATE POSITIVE QUAL (NEGATIVE); UDS - PCP NEGATIVE QUAL (NEGATIVE); UDS - THC NEGATIVE QUAL (NEGATIVE)
--- NOTE | 2016-05-05 01:30 | NUR ---
MEDICATED WITH NORCO AND PO PHENERGAN FOR PAIN/NAUSEA. IVF INFUSING. PT HOPES THAT WHEN SHE SEES DR GRULLON TOMORROW HE WILL GIVE HER STRONGER PAIN MEDS.
[2016-05-05 01:48] VITALS: BP 103/65
[2016-05-05 06:00] VITALS: BP 141/86
[2016-05-05 08:00] VITALS: BP 109/73
--- NOTE | 2016-05-05 09:12 | NUR ---
PT IS ALERT. ASSESSMENT DONE PER FLOWSHEET. NO OTHER NEEDS AT THIS TIME. WILL CONTINUE TO MONITOR.
[2016-05-05 12:00] VITALS: BP 88/47
[2016-05-05 16:00] VITALS: BP 102/69
--- NOTE | 2016-05-05 19:20 | NUR ---
RESUMED CARE OF PT, IV-R.HAND-NS@100, AT BED SIDE, DENIES ANY NEEDS, BED IS LOW, SRX2,CALL LIGHT IN REACH, WILL CONTINUE TO MONITOR
[2016-05-05 21:39] VITALS: BP 111/87
--- NOTE | 2016-05-06 00:37 | NUR ---
LIFE SCIENCES TEACHER AT BEDSIDE TO OBTAIN VITALS, CALL LIGHT IN REACH. WILL CONTINUE WITH PLAN OF CARE.
[2016-05-06 01:40] VITALS: BP 102/77
[2016-05-06 04:56] VITALS: BP 140/76
--- NOTE | 2016-05-06 07:46 | NUR ---
AM ROUNDING- PT SITTING UP IN BED WITH EYES OPEN RESTING. PT CURRENTLY IS C/O A HEADACHE. ON ROOM AIR. NO MONITOR. IV SEEN TO RIGHT HAND WITH NS RUNNING AT 100CC. PER REPORT FROM GLUING MACHINE OPERATOR AUTOMATIC NURSE URI, PT IS UP AD IVETT. ALERT AND ORIENTED. WILL CONTINUE TO MONITOR AND SEE ABOUT GETTING SOMETHING FOR PTS HEADACHE.
[2016-05-06 08:01] VITALS: BP 158/90
[2016-05-06 12:24] VITALS: BP 118/67
--- NOTE | 2016-05-06 15:22 | NUR ---
IV ACCESS-22 GAUGE INSERTED IN LEFT INNER WRIST AREA. FARIHA ELY RN
--- NOTE | 2016-05-06 15:35 | NUR ---
PT REQUEST ME TO CALL DR. GRULLON BECAUSE HER HEADACHE WILL NOT GO AWAY AND NOTHING IS SEEMING TO HELP. PAGED DR. GRULLON. AWAITING CALLBACK.
--- NOTE | 2016-05-06 15:46 | NUR ---
RECEIVED CALLBACK FROM DR. GRULLON. NO NEW ORDERS RECEIVED.
[2016-05-06 16:00] VITALS: BP 152/94
--- NOTE | 2016-05-06 17:32 | NUR ---
PT LAYING IN BED ON BACK WITH EYES OPEN RESTING CURRENTLY EATING HER DINNER. DENIES ANY NEED AT CURRENT TIME. WILL CONTINUE TO MONITOR.
[2016-05-06 20:00] VITALS: BP 126/77
[2016-05-07] VITALS: BP 145/84
[2016-05-07 04:00] VITALS: BP 152/86
[2016-05-07 08:22] VITALS: BP 144/87
--- NOTE | 2016-05-07 10:38 | NUR ---
0715- AM ROUNDING: PT LAYING IN BED ON BACK WITH EYES CLOSED RESTING. IS AT BEDSIDE. ON ROOM AIR. NO MONITOR. IV SEEN TO LEFT HAND WITH NS RUNNING AT 125CC. UP AD IVETT. ALERT AND ORIENTED PER REPORT. NO NEED AT CURRENT TIME. WILLC CONTINUE TO MONITOR AND CONTINUE WITH PLAN OF CARE.
[2016-05-07 12:42] VITALS: BP 146/84
--- NOTE | 2016-05-07 12:46 | NUR ---
Nutrition follow-up: Diet: Regular PO intake 75-100% of meals Labs reviewed Wt: 214# Pt with h/a at this time RDN following.
--- NOTE | 2016-05-07 16:51 | NUR ---
Patient Name: FRANCISCO FRANKLIN Admission Status: Urgent Accout number: [id number] Admission Date: 05-04-2016 : 1965 Admission Diagnosis:HEADACHE Attending: TANIYA Current LOS: 3 Anticipated DC Date: 05-08-2016 Planned Disposition: Primary Insurance: MEDICARE A & B Discharge Planning Comments: CM met with patient to discuss discharge planning/needs. The patient stated she resides at home with her spouse in a single story home with 4 steps at the front door. She has a nebulizer supplied by [employer] ([phone]) but denies additional DME supplies or needs at this time. Her caregiver at home will be her spouse "Geovani Franklin" ([phone]) who will also be her transportation home. Her PCP is Dr. Basurto. Her pharmacy is [facility] ([phone]). CM will continue to follow and assist with discharge planning as needed. User Experience Analyst: Elizabeth Viveros Is the patient Alert and Oriented? Yes 0 * How many steps to enter\\exit or inside your home? 4 0 * PCP MITCHEL 0 * Pharmacy [facility] [phone] 0 * Preadmission Environment Home with Family 0 * ADLs Independent 0 * Equipment Nebulizer 0 * List name and contact numbers for known caregivers / representatives who currently or will assist patient after discharge: GEOVANI FRANKLIN(spouse) [phone] 0 * Community resources currently utilized None 0 * Please name any agencies selected above. [employer] [facility] 0 * Additional services required to return to the preadmission environment? No 0 * Can the patient safely return to the preadmission environment? Yes 0 * Has this patient been hospitalized within the prior 30 days at any hospital? Yes 0 Grand Total: 0
[2016-05-07 16:55] VITALS: BP 132/79
--- NOTE | 2016-05-07 18:11 | NUR ---
PT LAYING IN BED ON BACK WITH EYES OPEN RESTING. DENIES ANY NEED AT CURRENT TIME. WILL CONTINUE TO MONITOR.
--- NOTE | 2016-05-07 19:46 | NUR ---
RECEIVED REPORT, IV-L.HAND-NS-125, PT ASKING TO BE WRAPPED UP SO CAN SHOWER, I ASSIST WITH THAT, JOURNEYMAN LEVEL ACOUSTIC ANALYST CHANGED BED, WILL CONTINUE TO MONITOR
[2016-05-07 21:31] VITALS: BP 125/76
[2016-05-08 05:53] VITALS: BP 125/81
--- NOTE | 2016-05-08 07:25 | NUR ---
PT IS ALERT. NO SS OF DISTRESS AT THIS TIME. WILL CONTINUE TO MONTIOR.
--- NOTE | 2016-05-08 07:42 | NUR ---
PATIENT ALERT/ORIENT X4. LEFT HAND PHERIPHAL LINE WITH NS RUNNING AT 125CC/HR. CALL LIGHT WITHIN REACH. VOICES NO NEEDS AT THIS TIME.
[2016-05-08 09:04] VITALS: BP 139/87
--- NOTE | 2016-05-08 11:00 | NUR ---
PATIENT DENIES ANY C/O OF HEADACHE AT THIS TIME
[2016-05-08 12:12] VITALS: BP 151/87
--- NOTE | 2016-05-08 13:56 | NUR ---
PATIENT TAKEN TO RADIOLOGY FOR MRI
--- NOTE | 2016-05-08 14:00 | NUR ---
PATIENT TAKEN DOWN FOR MRI OF THE BRAIN AND MRI OF THE CERVICAL SPINE
[2016-05-08 16:25] VITALS: BP 174/101
--- NOTE | 2016-05-08 17:38 | NUR ---
PATIENT STATED THAT DHE IS NOT HELPING HER HEADACHE. PATIENT STATED SHE WANTED A SHOT OF DEMEROL. THIS NURSE CALLED DR. GRULLON. DR GRULLON STATED NO, THIS PATIENT IS NOT TO HAVE ANY OTHER MEDICTION
[2016-05-08 20:19] VITALS: BP 147/88
[2016-05-09 00:37] VITALS: BP 119/73
[2016-05-09 04:23] VITALS: BP 147/93
--- NOTE | 2016-05-09 04:32 | NUR ---
ASSESSMENT COMPLETE, IV-L.HAND-NS-125, BED IS LOW, SRX2, CALL LIGHT IN REACH, DENIES ANY NEEDS AT THIS TIME, WILL CONTINUE TO MONITOR
--- NOTE | 2016-05-09 08:00 | NUR ---
INTRODUCED MYSELF TO PT PRIMARY RN FOR TODAYS SHIFT. SHIFT ASSESSMENT COMPLETED. PT IS ALERT AND ORIENTED RESTING QUIETLY IN BED. L.HAND PIV IN PLACE PATENT WITH DRSG CDI AND SWAB CAPS IN USE INFUSING NS @125ML/HR. PT IS AMBULATORY AND NOT WEARING SCDS STATES SHE DOESNT NEED NOR WANT THEM. ALL SKIN INTACT. PT DENIES ANY CURRENT NEEDS BUT WOULD LIKE PAIN MEDS WITH MED PASS FOR HER CHRONIC ACHING SPENCE. CL IN REACH, BED IN LOWEST, SIDE RAILS X2. WILL CPOC.
[2016-05-09 09:00] VITALS: BP 162/93
[2016-05-09] MEDS ORDERED: Topamax PO (12:36)
--- NOTE | 2016-05-09 13:28 | NUR ---
D/C PTS L.HAND PIV WITH CATH TIP FULLY INTACT. PT BEING D/C. PT C/O HER HEAD STILL POUNDING AND HURTING REQUESTED AND PROVIDED WITH PRN NORCO. PT SITTING UP RESTING WITH AT BEDSIDE. DENIES ANY FURTHER NEEDS AT THIS TIME. WILL CONTINUE WITH DISCHARGE PAPERWORK.
[2016-05-09] MEDS ORDERED: NORCO 7.5/325 T1 TA1 PO (13:53)
--- NOTE | 2016-05-09 14:26 | NUR ---
D/C PAPERS SIGNED AND TEACHING COMPLETED. PT DENIES ANY QUESTIONS AND VERBALIZED UNDERSTANDING. AT BEDSIDE ASSISTING HER COLLECTING HER BELONGINGS AND GETTING DRESSED. NO FURTHER NEEDS.
[2016-05-10] MEDS ORDERED: TOPAMAX50 MG PO (10:41)
== END 2016-05-09 14:39 | disposition home or self-care (01) | DRG 552 ==
LOC: D.SDCHOLD 11:06 → D.M2 11:06 → D.SDCHOLD 15:12 → D.M2 15:15
PROVIDERS: ADMIT Legal Medicine
DX: M50.222 Other cervical disc displacement at C5-C6 level (principal); G43.009 Migraine without aura, not intractable, without status migrainosus; E86.0 Dehydration; M51.27 Other intervertebral disc displacement, lumbosacral region; R26.89 Other abnormalities of gait and mobility; D32.0 Benign neoplasm of cerebral meninges; Z87.891 Personal history of nicotine dependence

== ENCOUNTER 2016-05-16 14:14 | Emergency (ER) | payer MEDICARE ==
[2016-05-04 13:58] VITALS: BMI 32.1
[~2016-05-16 14:14] MED LIST changes: +NORCO 7.5/325 T1 TA1 PO; +TOPAMAX50 MG PO; +Topamax PO
== END 2016-05-16 18:25 | disposition home or self-care (01) ==
LOC: D.ER 14:14
DX: G43.909 Migraine, unspecified, not intractable, without status migrainosus (principal); M94.0 Chondrocostal junction syndrome [Tietze]; E87.5 Hyperkalemia

== ENCOUNTER 2016-05-21 21:44 | Emergency (ER) | payer MEDICARE ==
[2016-05-04 13:58] VITALS: BMI 32.1
== END 2016-05-21 22:00 | disposition left against medical advice (07) ==
LOC: D.ER 21:44
DX: Z02.9 Encounter for administrative examinations, unspecified (principal)

== ENCOUNTER 2016-05-27 19:37 | Emergency (ER) | payer MEDICARE ==
[2016-05-04 13:58] VITALS: BMI 32.1
[2016-05-27 20:22] LABS: BASOPHILS 0.2 % (0.0-2.0); HEMATOCRIT 43.6 % (36.0-48.0); HEMOGLOBIN 14.4 g/dL (12-16); IMMATURE GRANULOCYTES 0.3 % (0-5); LYMPHOCYTES 30.1 % (15-50); MCH 30.6 pg (26.0-34.0); MCV 92.8 fL (80.0-100.0); MEAN PLATELET VOLUME 10.5 fL (7.4-10.4); MONOCYTES 9.9 % (2-11); NEUTROPHILS 58.5 % (40-80); RDW 14.7 % (11.5-14.5); WBC 11.6 10x3/uL (4.8-10.8)
[2016-05-27 20:32] LABS: PLATELET COUNT 346 10x3/uL (130-400)
[2016-05-27 20:37] LABS: ALBUMIN 3.7 g/dL (3.4-5.0); ALKALINE PHOSPHATASE 95 U/L (46-116); ALT (SGPT) 33 U/L (10-68); BILIRUBIN - TOTAL 0.13 mg/dL (0.2-1.3); CALC OSMOLALITY 279 mosm/kg (275-300); CALCIUM 8.9 mg/dL (8.5-10.1); CARBON DIOXIDE 21.3 mmol/L (21.0-32.0); CHLORIDE - SERUM 107 mmol/L (98-107); CREATININE - SERUM 0.8 mg/dL (0.6-1.3); GLUCOSE 106 mg/dL (74-106); PROTEIN - SERUM 7.3 g/dL (6.4-8.2); SODIUM 140 mmol/L (136-145); UREA NITROGEN 16 mg/dL (7-18); eGFR NON AFRICAN AMERICAN 79 mL/min (90-120)
[2016-05-27 20:49] LABS: CKMB 2.3 U/L (0.0-3.6); CREATINE KINASE 56 UL (21-215); TROPONIN-I < 0.017 ng/mL (0.000-0.060)
== END 2016-05-27 22:30 | disposition home or self-care (01) ==
LOC: D.ER 19:37
PROVIDERS: Emergency Medicine
DX: R07.89 Other chest pain (principal); R51 Headache; R55 Syncope and collapse; M94.0 Chondrocostal junction syndrome [Tietze]; E87.5 Hyperkalemia; F17.200 Nicotine dependence, unspecified, uncomplicated

== ENCOUNTER 2016-06-02 10:30 | Emergency (ER) | payer MEDICARE ==
[2016-05-04 13:58] VITALS: BMI 32.1
== END 2016-06-02 12:04 | disposition home or self-care (01) ==
LOC: D.ER 10:30
DX: G43.909 Migraine, unspecified, not intractable, without status migrainosus (principal); E87.5 Hyperkalemia

== ENCOUNTER 2016-06-03 11:49 | Emergency (ER) | payer MEDICARE ==
[2016-05-04 13:58] VITALS: BMI 32.1
[2016-06-03 12:42] LABS: BASOPHILS 0.2 % (0.0-2.0); EOSINOPHILS 1.6 % (0-7); HEMATOCRIT 43.9 % (36.0-48.0); HEMOGLOBIN 14.8 g/dL (12-16); IMMATURE GRANULOCYTES 0.2 % (0-5); LYMPHOCYTES 35.5 % (15-50); MCHC 33.7 g/dL (31.0-37.0); MCV 91.8 fL (80.0-100.0); MEAN PLATELET VOLUME 10.2 fL (7.4-10.4); MONOCYTES 7.4 % (2-11); NEUTROPHILS 55.1 % (40-80); PLATELET COUNT 319 10x3/uL (130-400); RBC 4.78 10x6/uL (4.00-5.40); RDW 14.9 % (11.5-14.5); WBC 8.3 10x3/uL (4.8-10.8)
[2016-06-03 13:22] LABS: ALBUMIN 3.6 g/dL (3.4-5.0); ALKALINE PHOSPHATASE 98 U/L (46-116); ALT (SGPT) 31 U/L (10-68); BILIRUBIN - TOTAL 0.21 mg/dL (0.2-1.3); CALC OSMOLALITY 275 mosm/kg (275-300); CALCIUM 8.9 mg/dL (8.5-10.1); CARBON DIOXIDE 19.4 mmol/L (21.0-32.0); CHLORIDE - SERUM 102 mmol/L (98-107); CHOL - HDL RATIO 4.9 ratio (2.3-4.1); CHOLESTEROL, TOTAL 288 mg/dL (0-200); CKMB 1.1 U/L (0.0-3.6); CREATINE KINASE 90 UL (21-215); GLUCOSE 99 mg/dL (74-106); HDL CHOLESTEROL 59 mg/dL (32-96); LDL CHOLESTEROL 208 mg/dL (0-100); LDL-HDL RATIO 3.5 ratio (1.5-3.5); POTASSIUM - SERUM 4.1 mmol/L (3.5-5.1); PROTEIN - SERUM 6.9 g/dL (6.4-8.2); SODIUM 137 mmol/L (136-145); TRIGLYCERIDE 105 mg/dL (30-200); TROPONIN-I < 0.017 ng/mL (0.000-0.060); UREA NITROGEN 18 mg/dL (7-18); eGFR NON AFRICAN AMERICAN 61 mL/min (90-120)
== END 2016-06-03 15:13 | disposition home or self-care (01) ==
LOC: D.ER 11:49
PROVIDERS: Emergency Medicine
DX: R07.89 Other chest pain (principal); R51 Headache; R94.31 Abnormal electrocardiogram [ECG] [EKG]; F17.200 Nicotine dependence, unspecified, uncomplicated

== ENCOUNTER 2016-07-03 15:13 | Emergency (ER) | payer MEDICARE ==
[2016-05-04 13:58] VITALS: BMI 32.1
[2016-07-03 15:52] LABS: BASOPHILS 0.2 % (0-2); EOSINOPHILS 0.7 % (0-7); HEMATOCRIT 50.1 % (36.0-48.0); HEMOGLOBIN 17.1 g/dL (12-16); IMMATURE GRANULOCYTES 0.3 % (0-5); LYMPHOCYTES 22.5 % (15-50); MCH 30.8 pg (26.0-34.0); MCHC 34.1 g/dL (31.0-37.0); MCV 90.3 fL (80.0-100.0); MEAN PLATELET VOLUME 10.8 fL (7.4-10.4); NEUTROPHILS 68.3 % (40-80); PLATELET COUNT 275 10x3/uL (130-400); RBC 5.55 10x6/uL (4.00-5.40); RDW 14.6 % (11.5-14.5); WBC 11.7 10x3/uL (4.8-10.8)
[2016-07-03 16:12] LABS: ALBUMIN 3.9 g/dL (3.4-5.0); ANION GAP 14.2 mmol/L (8-16); BILIRUBIN - TOTAL 0.64 mg/dL (0.2-1.3); CALCIUM 9.6 mg/dL (8.5-10.1); CARBON DIOXIDE 24.9 mmol/L (21.0-32.0); POTASSIUM - SERUM 3.1 mmol/L (3.5-5.1); PROTEIN - SERUM 7.1 g/dL (6.4-8.2)
[2016-07-03 16:59] LABS: APPEARANCE CLOUDY (CLEAR); BACTERIA MANY /hpf (NONE SEEN); BILIRUBIN NEGATIVE (NEGATIVE); COLOR YELLOW (YELLOW); EPITHELIAL CELLS 0-5 /hpf (0-5); GLUCOSE NEGATIVE (NEGATIVE); KETONE NEGATIVE (NEGATIVE); LEUKOCYTE ESTERASE 1+ (NEGATIVE); NITRITE NEGATIVE (NEGATIVE); PROTEIN 2+ mg/dL (NEGATIVE); RED CELLS - URINE 0-5 /hpf (0-5); SPECIFIC GRAVITY 1.015 (1.005-1.020); UROBILINOGEN NORMAL (NORMAL); WHITE CELLS - URINE 0-5 /hpf (0-5)
== END 2016-07-03 19:00 | disposition home or self-care (01) ==
LOC: D.ER 15:13
PROVIDERS: Emergency Medicine
DX: R11.10 Vomiting, unspecified (principal); R51 Headache; E87.5 Hyperkalemia

== ENCOUNTER 2016-07-07 15:55 | Emergency (ER) | payer MEDICARE ==
[2016-05-04 13:58] VITALS: BMI 32.1
[2016-07-07 20:40] LABS: BASOPHILS 0.1 % (0-2); EOSINOPHILS 1.1 % (0-7); HEMATOCRIT 46.5 % (36.0-48.0); HEMOGLOBIN 15.6 g/dL (12-16); IMMATURE GRANULOCYTES 0.1 % (0-5); LYMPHOCYTES 46.7 % (15-50); MCH 30.9 pg (26.0-34.0); MCHC 33.5 g/dL (31.0-37.0); MCV 92.1 fL (80.0-100.0); MEAN PLATELET VOLUME 11.1 fL (7.4-10.4); MONOCYTES 8.5 % (2-11); NEUTROPHILS 43.5 % (40-80); PLATELET COUNT 258 10x3/uL (130-400); RBC 5.05 10x6/uL (4.00-5.40); RDW 14.9 % (11.5-14.5); WBC 7.1 10x3/uL (4.8-10.8)
[2016-07-07 20:44] LABS: ALBUMIN 3.5 g/dL (3.4-5.0); ALKALINE PHOSPHATASE 98 U/L (46-116); ALT (SGPT) 65 U/L (10-68); BILIRUBIN - TOTAL 0.31 mg/dL (0.2-1.3); CALC OSMOLALITY 278 mosm/kg (275-300); CALCIUM 9.3 mg/dL (8.5-10.1); CARBON DIOXIDE 26.3 mmol/L (21.0-32.0); CHLORIDE - SERUM 104 mmol/L (98-107); CREATININE - SERUM 0.8 mg/dL (0.6-1.3); GLUCOSE 86 mg/dL (74-106); POTASSIUM - SERUM 3.6 mmol/L (3.5-5.1); SODIUM 141 mmol/L (136-145); UREA NITROGEN 9 mg/dL (7-18); eGFR NON AFRICAN AMERICAN 79 mL/min (90-120)
== END 2016-07-07 21:58 | disposition home or self-care (01) ==
LOC: D.ER 15:55
PROVIDERS: Nurse Practitioner Family
DX: R51 Headache (principal); R11.2 Nausea with vomiting, unspecified; F41.9 Anxiety disorder, unspecified; M94.0 Chondrocostal junction syndrome [Tietze]

== ENCOUNTER 2016-08-24 11:28 | Emergency (ER) | payer MEDICARE ==
[2016-05-04 13:58] VITALS: BMI 32.1
[2016-08-24 12:17] LABS: APPEARANCE CLEAR (CLEAR); BILIRUBIN NEGATIVE (NEGATIVE); COLOR STRAW (YELLOW); GLUCOSE NEGATIVE (NEGATIVE); KETONE NEGATIVE (NEGATIVE); LEUKOCYTE ESTERASE NEGATIVE (NEGATIVE); NITRITE NEGATIVE (NEGATIVE); PROTEIN NEGATIVE (NEGATIVE); SPECIFIC GRAVITY 1.015 (1.005-1.020); UROBILINOGEN NORMAL (NORMAL)
[2016-08-24 12:26] LABS: BASOPHILS 0.3 % (0-2); HEMOGLOBIN 13.7 g/dL (12-16); IMMATURE GRANULOCYTES 0.2 % (0-5); LYMPHOCYTES 28.8 % (15-50); MCH 31.6 pg (26.0-34.0); MCHC 33.4 g/dL (31.0-37.0); MCV 94.5 fL (80.0-100.0); MEAN PLATELET VOLUME 10.2 fL (7.4-10.4); MONOCYTES 6.7 % (2-11); PLATELET COUNT 279 10x3/uL (130-400); RBC 4.34 10x6/uL (4.00-5.40); RDW 15.3 % (11.5-14.5); WBC 6.6 10x3/uL (4.8-10.8)
[2016-08-24 12:47] LABS: ALBUMIN 3.1 g/dL (3.4-5.0); ALKALINE PHOSPHATASE 85 U/L (46-116); ALT (SGPT) 52 U/L (10-68); BILIRUBIN - TOTAL 0.33 mg/dL (0.2-1.3); CALC OSMOLALITY 280 mosm/kg (275-300); CALCIUM 8.6 mg/dL (8.5-10.1); CARBON DIOXIDE 22.8 mmol/L (21.0-32.0); CHLORIDE - SERUM 108 mmol/L (98-107); CREATININE - SERUM 0.7 mg/dL (0.6-1.3); GLUCOSE 102 mg/dL (74-106); POTASSIUM - SERUM 3.4 mmol/L (3.5-5.1); PROTEIN - SERUM 5.9 g/dL (6.4-8.2); SODIUM 142 mmol/L (136-145); UREA NITROGEN 7 mg/dL (7-18); eGFR NON AFRICAN AMERICAN > 90 mL/min (90-120)
[2016-08-24 12:59] LABS: AMYLASE - SERUM 27 U/L (25-115); CKMB 0.1 U/L (0.0-3.6); CREATINE KINASE 61 UL (21-215); LIPASE 112 U/L (73-393)
[2016-08-24 13:00] LABS: TROPONIN-I < 0.017 ng/mL (0.000-0.060)
== END 2016-08-24 14:35 | disposition home or self-care (01) ==
LOC: D.ER 11:28
PROVIDERS: Emergency Medicine
DX: H66.92 Otitis media, unspecified, left ear (principal); R07.9 Chest pain, unspecified; R10.9 Unspecified abdominal pain

== ENCOUNTER 2016-08-25 11:20 | Emergency (ER) | payer MEDICARE ==
[2016-05-04 13:58] VITALS: BMI 32.1
[2016-08-25 12:16] LABS: APPEARANCE HAZY (CLEAR); BILIRUBIN NEGATIVE (NEGATIVE); COLOR YELLOW (YELLOW); GLUCOSE NEGATIVE (NEGATIVE); KETONE NEGATIVE (NEGATIVE); LEUKOCYTE ESTERASE NEGATIVE (NEGATIVE); NITRITE NEGATIVE (NEGATIVE); PROTEIN NEGATIVE (NEGATIVE); SPECIFIC GRAVITY 1.015 (1.005-1.020); UROBILINOGEN NORMAL (NORMAL)
[2016-08-25 12:18] LABS: BACTERIA MODERATE /hpf (NONE SEEN); MUCUS <1+ /lpf (NONE SEEN); RED CELLS - URINE 0-5 /hpf (0-5); WHITE CELLS - URINE 0-5 /hpf (0-5)
== END 2016-08-25 15:16 | disposition home or self-care (01) ==
LOC: D.ER 11:20
PROVIDERS: Physician Assistant
DX: R10.30 Lower abdominal pain, unspecified (principal); F17.200 Nicotine dependence, unspecified, uncomplicated

== ENCOUNTER 2016-09-14 14:40 | Emergency (ER) | payer MEDICARE ==
[2016-05-04 13:58] VITALS: BMI 32.1
[2016-09-14 15:13] LABS: BASOPHILS 0.2 % (0-2); EOSINOPHILS 0.9 % (0-7); HEMATOCRIT 43.7 % (36.0-48.0); HEMOGLOBIN 14.9 g/dL (12-16); IMMATURE GRANULOCYTES 0.2 % (0-5); LYMPHOCYTES 25.1 % (15-50); MCH 31.8 pg (26.0-34.0); MCHC 34.1 g/dL (31.0-37.0); MCV 93.4 fL (80.0-100.0); MEAN PLATELET VOLUME 10.6 fL (7.4-10.4); MONOCYTES 7.3 % (2-11); NEUTROPHILS 66.3 % (40-80); PLATELET COUNT 297 10x3/uL (130-400); RBC 4.68 10x6/uL (4.00-5.40); RDW 14.6 % (11.5-14.5); WBC 8.1 10x3/uL (4.8-10.8)
[2016-09-14 17:05] LABS: UDS - AMPHET NEGATIVE QUAL (NEGATIVE); UDS - BARB NEGATIVE QUAL (NEGATIVE); UDS - BENZO NEGATIVE QUAL (NEGATIVE); UDS - COCAINE NEGATIVE QUAL (NEGATIVE); UDS - METH NEGATIVE QUAL (NEGATIVE); UDS - OPIATE NEGATIVE QUAL (NEGATIVE); UDS - PCP NEGATIVE QUAL (NEGATIVE); UDS - THC NEGATIVE QUAL (NEGATIVE)
[2016-09-14 17:06] LABS: APPEARANCE HAZY (CLEAR); BILIRUBIN NEGATIVE (NEGATIVE); COLOR YELLOW (YELLOW); GLUCOSE NEGATIVE (NEGATIVE); KETONE NEGATIVE (NEGATIVE); LEUKOCYTE ESTERASE TRACE (NEGATIVE); NITRITE NEGATIVE (NEGATIVE); PROTEIN NEGATIVE (NEGATIVE); UROBILINOGEN NORMAL (NORMAL)
[2016-09-14 17:18] LABS: RED CELLS - URINE OCC /hpf (0-5); WHITE CELLS - URINE 0-5 /hpf (0-5)
[2016-09-14 17:19] LABS: BACTERIA MANY /hpf (NONE SEEN)
== END 2016-09-14 18:03 | disposition home or self-care (01) ==
LOC: D.ER 14:40
PROVIDERS: Emergency Medicine; Nurse Practitioner Family
DX: R10.9 Unspecified abdominal pain (principal); N39.0 Urinary tract infection, site not specified; R11.0 Nausea

== ENCOUNTER 2016-10-18 00:25 | Emergency (ER) | payer MEDICARE ==
[2016-05-04 13:58] VITALS: BMI 32.1
== END 2016-10-18 01:47 | disposition home or self-care (01) ==
LOC: D.ER 00:25
DX: G43.909 Migraine, unspecified, not intractable, without status migrainosus (principal); F17.200 Nicotine dependence, unspecified, uncomplicated

== ENCOUNTER 2016-11-14 12:53 | Emergency (ER) | payer MEDICARE ==
[2016-05-04 13:58] VITALS: BMI 32.1
== END 2016-11-14 15:31 | disposition home or self-care (01) ==
LOC: D.ER 12:53
DX: S39.012A Strain of muscle, fascia and tendon of lower back, initial encounter (principal); X58.XXXA Exposure to other specified factors, initial encounter; Y93.89 Activity, other specified; Y92.029 Unspecified place in mobile home as the place of occurrence of the external cause; M25.50 Pain in unspecified joint; F17.200 Nicotine dependence, unspecified, uncomplicated

== ENCOUNTER 2016-11-15 23:18 | Emergency (ER) | payer MEDICARE ==
[2016-05-04 13:58] VITALS: BMI 32.1
== END 2016-11-16 00:31 | disposition home or self-care (01) ==
LOC: D.ER 23:18
DX: M54.5 Low back pain (principal); F17.200 Nicotine dependence, unspecified, uncomplicated

== ENCOUNTER 2016-11-17 21:49 | Emergency (ER) | payer MEDICARE ==
[2016-05-04 13:58] VITALS: BMI 32.1
[2016-11-17 23:37] LABS: BASOPHILS 0.1 % (0-2); EOSINOPHILS 1.4 % (0-7); HEMATOCRIT 40.4 % (36.0-48.0); HEMOGLOBIN 13.7 g/dL (12-16); IMMATURE GRANULOCYTES 0.1 % (0-5); LYMPHOCYTES 42.8 % (15-50); MCH 32.1 pg (26.0-34.0); MCHC 33.9 g/dL (31.0-37.0); MCV 94.6 fL (80.0-100.0); MEAN PLATELET VOLUME 10.5 fL (7.4-10.4); NEUTROPHILS 49.6 % (40-80); PLATELET COUNT 272 10x3/uL (130-400); RBC 4.27 10x6/uL (4.00-5.40); RDW 14.3 % (11.5-14.5); WBC 7.6 10x3/uL (4.8-10.8)
[2016-11-17 23:44] LABS: ALBUMIN 3.5 g/dL (3.4-5.0); ANION GAP 16.8 mmol/L (8-16); BILIRUBIN - TOTAL 0.18 mg/dL (0.2-1.3); CALCIUM 9.1 mg/dL (8.5-10.1); CARBON DIOXIDE 24.1 mmol/L (21.0-32.0); CREATININE - SERUM 0.9 mg/dL (0.6-1.3); POTASSIUM - SERUM 3.9 mmol/L (3.5-5.1); PROTEIN - SERUM 6.9 g/dL (6.4-8.2)
== END 2016-11-17 23:00 | disposition left against medical advice (07) ==
LOC: D.ER 21:49
PROVIDERS: Family Medicine
DX: R20.2 Paresthesia of skin (principal)

== ENCOUNTER 2016-11-18 03:12 | Emergency (ER) | payer MEDICARE ==
[2016-05-04 13:58] VITALS: BMI 32.1
[2016-11-18 03:34] LABS: APPEARANCE CLEAR (CLEAR); BILIRUBIN NEGATIVE (NEGATIVE); COLOR YELLOW (YELLOW); GLUCOSE NEGATIVE (NEGATIVE); KETONE NEGATIVE (NEGATIVE); LEUKOCYTE ESTERASE 1+ (NEGATIVE); NITRITE NEGATIVE (NEGATIVE); PROTEIN NEGATIVE (NEGATIVE); SPECIFIC GRAVITY 1.015 (1.005-1.020); UROBILINOGEN NORMAL (NORMAL)
[2016-11-18 03:35] LABS: BACTERIA FEW /hpf (NONE SEEN); EPITHELIAL CELLS 0-5 /hpf (0-5); RED CELLS - URINE NONE SEEN /hpf (0-5); WHITE CELLS - URINE 0-5 /hpf (0-5)
[2016-11-18 05:00] LABS: UDS - AMPHET NEGATIVE QUAL (NEGATIVE); UDS - BARB NEGATIVE QUAL (NEGATIVE); UDS - BENZO POSITIVE QUAL (NEGATIVE); UDS - COCAINE NEGATIVE QUAL (NEGATIVE); UDS - METH NEGATIVE QUAL (NEGATIVE); UDS - OPIATE POSITIVE QUAL (NEGATIVE); UDS - PCP NEGATIVE QUAL (NEGATIVE); UDS - THC NEGATIVE QUAL (NEGATIVE)
== END 2016-11-18 07:00 | disposition home or self-care (01) ==
LOC: D.ER 03:12
PROVIDERS: Family Medicine
DX: M54.16 Radiculopathy, lumbar region (principal); F17.200 Nicotine dependence, unspecified, uncomplicated

== ENCOUNTER 2016-11-29 23:57 | Emergency (ER) | payer MEDICARE ==
[2016-05-04 13:58] VITALS: BMI 32.1
== END 2016-11-30 01:20 | disposition home or self-care (01) ==
LOC: D.ER 23:57
DX: G43.909 Migraine, unspecified, not intractable, without status migrainosus (principal); F17.200 Nicotine dependence, unspecified, uncomplicated

== ENCOUNTER 2016-11-30 03:03 | Emergency (ER) | payer MEDICARE ==
[2016-05-04 13:58] VITALS: BMI 32.1
== END 2016-11-30 04:00 | disposition home or self-care (01) ==
LOC: D.ER 03:03
DX: J01.90 Acute sinusitis, unspecified (principal); G43.909 Migraine, unspecified, not intractable, without status migrainosus; F17.200 Nicotine dependence, unspecified, uncomplicated

== ENCOUNTER 2016-12-11 23:19 | Emergency (ER) | payer MEDICARE ==
[2016-05-04 13:58] VITALS: BMI 32.1
== END 2016-12-12 01:26 | disposition home or self-care (01) ==
LOC: D.ER 23:19
DX: R51 Headache (principal)

== ENCOUNTER 2016-12-12 12:51 | Emergency (ER) | payer MEDICARE ==
[2016-05-04 13:58] VITALS: BMI 32.1
== END 2016-12-12 14:14 | disposition home or self-care (01) ==
LOC: D.ER 12:51
DX: G43.909 Migraine, unspecified, not intractable, without status migrainosus (principal)

== ENCOUNTER 2017-01-03 14:57 | Emergency (ER) | payer MEDICARE ==
[2016-05-04 13:58] VITALS: BMI 32.1
== END 2017-01-03 17:40 | disposition home or self-care (01) ==
LOC: D.ER 14:57
DX: G43.909 Migraine, unspecified, not intractable, without status migrainosus (principal)

== ENCOUNTER 2017-01-04 02:59 | Emergency (ER) | payer MEDICARE ==
[2016-05-04 13:58] VITALS: BMI 32.1
== END 2017-01-04 03:38 | disposition home or self-care (01) ==
LOC: D.ER 02:59
DX: G43.909 Migraine, unspecified, not intractable, without status migrainosus (principal)

== ENCOUNTER 2017-01-06 23:23 | Emergency (ER) | payer MEDICARE ==
[2016-05-04 13:58] VITALS: BMI 32.1
== END 2017-01-07 01:28 | disposition home or self-care (01) ==
LOC: D.ER 23:23
DX: G43.909 Migraine, unspecified, not intractable, without status migrainosus (principal)

== ENCOUNTER 2017-01-08 03:38 | Emergency (ER) | payer MEDICARE ==
[2016-05-04 13:58] VITALS: BMI 32.1
== END 2017-01-08 06:12 | disposition home or self-care (01) ==
LOC: D.ER 03:38
DX: S60.222A Contusion of left hand, initial encounter (principal); V43.62XA Car passenger injured in collision with other type car in traffic accident, initial encounter; Y93.89 Activity, other specified; Y92.410 Unspecified street and highway as the place of occurrence of the external cause; S63.502A Unspecified sprain of left wrist, initial encounter; G43.909 Migraine, unspecified, not intractable, without status migrainosus; F17.200 Nicotine dependence, unspecified, uncomplicated

== ENCOUNTER 2017-01-08 20:21 | Emergency (ER) | payer MEDICARE ==
[2016-05-04 13:58] VITALS: BMI 32.1
== END 2017-01-08 22:00 | disposition home or self-care (01) ==
LOC: D.ER 20:21
DX: Z03.89 Encounter for observation for other suspected diseases and conditions ruled out (principal); Z76.5 Malingerer [conscious simulation]

== ENCOUNTER 2017-01-08 22:29 | Emergency (ER) | payer MEDICARE ==
[2016-05-04 13:58] VITALS: BMI 32.1
== END 2017-01-08 23:02 | disposition home or self-care (01) ==
LOC: D.ER 22:29
DX: Z03.89 Encounter for observation for other suspected diseases and conditions ruled out (principal); Z76.5 Malingerer [conscious simulation]

== ENCOUNTER 2017-02-05 17:56 | Emergency (ER) | payer MEDICARE ==
[2016-05-04 13:58] VITALS: BMI 32.1
== END 2017-02-05 21:03 | disposition home or self-care (01) ==
LOC: D.ER 17:56
DX: T81.31XA Disruption of external operation (surgical) wound, not elsewhere classified, initial encounter (principal); K21.9 Gastro-esophageal reflux disease without esophagitis; F17.200 Nicotine dependence, unspecified, uncomplicated

== ENCOUNTER 2017-02-13 20:58 | Emergency (ER) | payer MEDICARE ==
[2016-05-04 13:58] VITALS: BMI 32.1
== END 2017-02-13 22:10 | disposition home or self-care (01) ==
LOC: D.ER 20:58
DX: G89.18 Other acute postprocedural pain (principal); N64.4 Mastodynia; K21.9 Gastro-esophageal reflux disease without esophagitis

== ENCOUNTER 2017-02-21 00:20 | Emergency (ER) | payer MEDICARE ==
[2016-05-04 13:58] VITALS: BMI 32.1
== END 2017-02-21 00:53 | disposition home or self-care (01) ==
LOC: D.ER 00:20
DX: R51 Headache (principal); G89.18 Other acute postprocedural pain; K21.9 Gastro-esophageal reflux disease without esophagitis

== ENCOUNTER 2017-02-28 12:45 | Emergency (ER) | payer MEDICARE ==
[2016-05-04 13:58] VITALS: BMI 32.1
== END 2017-02-28 14:50 | disposition home or self-care (01) ==
LOC: D.ER 12:45
DX: R51 Headache (principal); K21.9 Gastro-esophageal reflux disease without esophagitis

== ENCOUNTER 2017-03-04 17:29 | Emergency (ER) | payer MEDICARE ==
[2016-05-04 13:58] VITALS: BMI 32.1
[2017-03-04 22:09] LABS: UDS - AMPHET NEGATIVE QUAL (NEGATIVE); UDS - BARB NEGATIVE QUAL (NEGATIVE); UDS - BENZO POSITIVE QUAL (NEGATIVE); UDS - COCAINE NEGATIVE QUAL (NEGATIVE); UDS - OPIATE POSITIVE QUAL (NEGATIVE); UDS - PCP NEGATIVE QUAL (NEGATIVE); UDS - THC NEGATIVE QUAL (NEGATIVE)
== END 2017-03-04 22:32 | disposition home or self-care (01) ==
LOC: D.ER 17:29
PROVIDERS: Physician Assistant Medical
DX: R51 Headache (principal); F17.200 Nicotine dependence, unspecified, uncomplicated; K21.9 Gastro-esophageal reflux disease without esophagitis

== ENCOUNTER 2017-03-07 06:33 | Emergency (ER) | payer MEDICARE ==
[2016-05-04 13:58] VITALS: BMI 32.1
[2017-03-07 07:10] LABS: BASOPHILS 0.1 % (0-2); EOSINOPHILS 0.3 % (0-7); HEMATOCRIT 39.4 % (36.0-48.0); IMMATURE GRANULOCYTES 0.2 % (0-5); LYMPHOCYTES 13.2 % (15-50); MCH 30.7 pg (26.0-34.0); MCV 93.1 fL (80.0-100.0); MEAN PLATELET VOLUME 9.9 fL (7.4-10.4); NEUTROPHILS 79.2 % (40-80); RBC 4.23 10x6/uL (4.00-5.40); RDW 14.4 % (11.5-14.5); WBC 13.7 10x3/uL (4.8-10.8)
[2017-03-07 07:14] LABS: ALBUMIN 3.7 g/dL (3.4-5.0); ANION GAP 16.7 mmol/L (8-16); BILIRUBIN - TOTAL 0.24 mg/dL (0.2-1.3); CALCIUM 9.6 mg/dL (8.5-10.1); POTASSIUM - SERUM 3.7 mmol/L (3.5-5.1)
[2017-03-07 07:19] LABS: PLATELET COUNT 411 10x3/uL (130-400)
== END 2017-03-07 07:30 | disposition home or self-care (01) ==
LOC: D.ER 06:33
PROVIDERS: Family Medicine
DX: J20.9 Acute bronchitis, unspecified (principal)

== ENCOUNTER 2017-04-05 19:13 | Emergency (ER) | payer MEDICARE ==
[2016-05-04 13:58] VITALS: BMI 32.1
== END 2017-04-05 20:50 | disposition home or self-care (01) ==
LOC: D.ER 19:13
DX: G43.909 Migraine, unspecified, not intractable, without status migrainosus (principal); K21.9 Gastro-esophageal reflux disease without esophagitis

== ENCOUNTER 2017-04-06 05:08 | Emergency (ER) | payer MEDICARE ==
[2016-05-04 13:58] VITALS: BMI 32.1
== END 2017-04-06 06:06 | disposition home or self-care (01) ==
LOC: D.ER 05:08
DX: G43.909 Migraine, unspecified, not intractable, without status migrainosus (principal); K21.9 Gastro-esophageal reflux disease without esophagitis; F17.200 Nicotine dependence, unspecified, uncomplicated

== ENCOUNTER 2017-04-13 14:26 | Emergency (ER) | payer MEDICARE ==
[2016-05-04 13:58] VITALS: BMI 32.1
== END 2017-04-13 15:27 | disposition home or self-care (01) ==
LOC: D.ER 14:26
DX: G43.909 Migraine, unspecified, not intractable, without status migrainosus (principal); K21.9 Gastro-esophageal reflux disease without esophagitis; F17.200 Nicotine dependence, unspecified, uncomplicated

== ENCOUNTER 2017-04-29 22:09 | Emergency (ER) | payer MEDICARE ==
[2016-05-04 13:58] VITALS: BMI 32.1
== END 2017-04-30 01:27 | disposition home or self-care (01) ==
LOC: D.ER 22:09
DX: G43.909 Migraine, unspecified, not intractable, without status migrainosus (principal); K21.9 Gastro-esophageal reflux disease without esophagitis

== ENCOUNTER 2017-04-30 19:10 | Emergency (ER) | payer MEDICARE ==
[2016-05-04 13:58] VITALS: BMI 32.1
== END 2017-04-30 20:30 | disposition left against medical advice (07) ==
LOC: D.ER 19:10
DX: R51 Headache (principal)

== ENCOUNTER 2017-05-02 23:07 | Emergency (ER) | payer MEDICARE ==
[2016-05-04 13:58] VITALS: BMI 32.1
== END 2017-05-03 03:02 | disposition home or self-care (01) ==
LOC: D.ER 23:07
DX: R51 Headache (principal); K21.9 Gastro-esophageal reflux disease without esophagitis

== ENCOUNTER 2017-05-29 06:15 | Emergency (ER) | payer MEDICARE, MEDICAID ==
[2016-05-04 13:58] VITALS: BMI 32.1
== END 2017-05-29 09:00 | disposition home or self-care (01) ==
LOC: D.ER 06:15
DX: S39.012A Strain of muscle, fascia and tendon of lower back, initial encounter (principal); Y04.2XXA Assault by strike against or bumped into by another person, initial encounter; Y93.89 Activity, other specified; Y92.019 Unspecified place in single-family (private) house as the place of occurrence of the external cause; M62.838 Other muscle spasm; S32.019A Unspecified fracture of first lumbar vertebra, initial encounter for closed fracture; S32.029A Unspecified fracture of second lumbar vertebra, initial encounter for closed fracture; K21.9 Gastro-esophageal reflux disease without esophagitis

== ENCOUNTER 2017-06-26 23:21 | Emergency (ER) | payer MEDICARE, MEDICAID ==
[2016-05-04 13:58] VITALS: BMI 32.1
[2017-06-27 00:38] LABS: APPEARANCE CLEAR (CLEAR); BILIRUBIN NEGATIVE (NEGATIVE); COLOR YELLOW (YELLOW); GLUCOSE NEGATIVE (NEGATIVE); KETONE NEGATIVE (NEGATIVE); NITRITE NEGATIVE (NEGATIVE); PROTEIN NEGATIVE (NEGATIVE); UROBILINOGEN NORMAL (NORMAL)
[2017-06-27 00:49] LABS: UDS - AMPHET NEGATIVE QUAL (NEGATIVE); UDS - BARB NEGATIVE QUAL (NEGATIVE); UDS - BENZO POSITIVE QUAL (NEGATIVE); UDS - COCAINE NEGATIVE QUAL (NEGATIVE); UDS - OPIATE NEGATIVE QUAL (NEGATIVE); UDS - PCP NEGATIVE QUAL (NEGATIVE); UDS - THC NEGATIVE QUAL (NEGATIVE)
== END 2017-06-27 01:29 | disposition home or self-care (01) ==
LOC: D.ER 23:21
PROVIDERS: Family Medicine
DX: S33.5XXA Sprain of ligaments of lumbar spine, initial encounter (principal); Y04.2XXA Assault by strike against or bumped into by another person, initial encounter; Y93.89 Activity, other specified; Y92.019 Unspecified place in single-family (private) house as the place of occurrence of the external cause

== ENCOUNTER 2017-06-27 01:08 | Emergency (ER) | payer MEDICARE, MEDICAID ==
[2016-05-04 13:58] VITALS: BMI 32.1
== END 2017-06-27 01:31 | disposition home or self-care (01) ==
LOC: D.ER 01:08
DX: M54.5 Low back pain (principal); M25.552 Pain in left hip

== ENCOUNTER 2018-05-26 17:13 | Emergency (ER) | payer OTHER, MEDICAID ==
[~2018-05-26] VITALS: Ht 170.2 cm; Wt 68.2 kg
[2018-05-26 17:15] VITALS: Ht 170.2 cm; Wt 68.2 kg
[2018-05-26 17:56] LABS: BASOPHILS 0.1 % (0-2); EOSINOPHILS 0.1 % (0-7); HEMATOCRIT 39.8 % (36.0-48.0); HEMOGLOBIN 13.6 g/dL (12-16); IMMATURE GRANULOCYTES 0.3 % (0-5); LYMPHOCYTES 15.6 % (15-50); MCH 28.6 pg (26.0-34.0); MCHC 34.2 g/dL (31.0-37.0); MCV 83.6 fL (80.0-100.0); MEAN PLATELET VOLUME 10.7 fL (7.4-10.4); NEUTROPHILS 77.9 % (40-80); RBC 4.76 10x6/uL (4.00-5.40); RDW 15.9 % (11.5-14.5); WBC 14.8 10x3/uL (4.8-10.8)
[2018-05-26 17:58] LABS: PLATELET COUNT 301 10x3/uL (130-400)
[2018-05-26 18:09] LABS: ALBUMIN 3.8 g/dL (3.4-5.0); ANION GAP 18.9 mmol/L (8-16); BILIRUBIN - TOTAL 0.21 mg/dL (0.2-1.3); CARBON DIOXIDE 18.1 mmol/L (21.0-32.0); CREATININE - SERUM 1.2 mg/dL (0.6-1.3)
[2018-05-26 18:56] LABS: UDS - AMPHET NEGATIVE QUAL (NEGATIVE); UDS - BARB NEGATIVE QUAL (NEGATIVE); UDS - BENZO NEGATIVE QUAL (NEGATIVE); UDS - COCAINE NEGATIVE QUAL (NEGATIVE); UDS - OPIATE NEGATIVE QUAL (NEGATIVE); UDS - PCP NEGATIVE QUAL (NEGATIVE); UDS - THC NEGATIVE QUAL (NEGATIVE)
[2018-05-26 19:00] LABS: APPEARANCE CLEAR (CLEAR); BILIRUBIN NEGATIVE (NEGATIVE); COLOR YELLOW (YELLOW); GLUCOSE NEGATIVE (NEGATIVE); KETONE MODERATE mg/dL (NEGATIVE); NITRITE NEGATIVE (NEGATIVE); PROTEIN TRACE mg/dL (NEGATIVE); SPECIFIC GRAVITY 1.025 (1.005-1.020); UROBILINOGEN NORMAL (NORMAL)
[2018-05-26 19:01] LABS: BACTERIA FEW /hpf (NONE SEEN); EPITHELIAL CELLS 0-5 /hpf (0-5); RED CELLS - URINE OCC /hpf (0-5); WHITE CELLS - URINE 0-5 /hpf (0-5)
[2018-05-26] MEDS ORDERED: MACROBID100 MG PO (21:28)
[2018-05-26 23:30] VITALS: BP 160/75
== END 2018-05-26 23:30 | disposition home or self-care (01) ==
LOC: D.ER 17:13
PROVIDERS: Family Medicine
DX: E86.0 Dehydration (principal); E87.6 Hypokalemia; N39.0 Urinary tract infection, site not specified

== ENCOUNTER 2018-06-24 06:10 | Emergency (ER) | payer OTHER, MEDICAID ==
[~2018-06-24] VITALS: Ht 170.2 cm; Wt 71.7 kg
[~2018-06-24 06:10] MED LIST changes: +MACROBID100 MG PO
[2018-06-24 06:17] VITALS: Ht 170.2 cm; Wt 71.7 kg
[2018-06-24 06:42] LABS: BASOPHILS 0.2 % (0-2); EOSINOPHILS 7.2 % (0-7); HEMATOCRIT 40.3 % (36.0-48.0); HEMOGLOBIN 14.5 g/dL (12-16); IMMATURE GRANULOCYTES 0.3 % (0-5); LYMPHOCYTES 17.4 % (15-50); MCH 29.1 pg (26.0-34.0); MCV 80.9 fL (80.0-100.0); MEAN PLATELET VOLUME 10.2 fL (7.4-10.4); MONOCYTES 10.1 % (2-11); NEUTROPHILS 64.8 % (40-80); PLATELET COUNT 260 10x3/uL (130-400); RBC 4.98 10x6/uL (4.00-5.40); RDW 14.9 % (11.5-14.5); WBC 6.2 10x3/uL (4.8-10.8)
[2018-06-24 06:49] LABS: APTT 30.3 SECONDS (22.8-39.4); INR 1.06 (0.85-1.17); PROTIME 13.3 SECONDS (11.6-15.0)
[2018-06-24 06:57] LABS: ALBUMIN 3.6 g/dL (3.4-5.0); ALKALINE PHOSPHATASE 281 U/L (46-116); ALT (SGPT) 196 U/L (10-68); BILIRUBIN - TOTAL 0.25 mg/dL (0.2-1.3); CALC OSMOLALITY 260 mosm/kg (275-300); CALCIUM 9.2 mg/dL (8.5-10.1); CARBON DIOXIDE 18.6 mmol/L (21.0-32.0); CHLORIDE - SERUM 97 mmol/L (98-107); CREATININE - SERUM 0.9 mg/dL (0.6-1.3); GLUCOSE 120 mg/dL (74-106); POTASSIUM - SERUM 3.5 mmol/L (3.5-5.1); PROTEIN - SERUM 7.8 g/dL (6.4-8.2); SODIUM 131 mmol/L (136-145); UREA NITROGEN 5 mg/dL (7-18); eGFR NON AFRICAN AMERICAN 69 mL/min (90-120)
[2018-06-24 07:08] LABS: CKMB 2.3 U/L (0.0-3.6); CREATINE KINASE 189 UL (21-215); MAGNESIUM - SERUM 1.9 mg/dL (1.8-2.4); TROPONIN-I < 0.017 ng/mL (0.000-0.060)
[2018-06-24] MEDS ORDERED: ZANTAC300 MG PO (10:21)
[2018-06-24 11:05] VITALS: BP 108/74
== END 2018-06-24 11:07 | disposition home or self-care (01) ==
LOC: D.ER 06:10
PROVIDERS: Family Medicine
DX: R07.89 Other chest pain (principal)

== ENCOUNTER 2018-08-30 01:49 | Emergency (ER) | payer OTHER, MEDICAID ==
[~2018-08-30] VITALS: Ht 170.2 cm; Wt 67.3 kg
[~2018-08-30 01:49] MED LIST changes: +ZANTAC300 MG PO
[2018-08-30 01:54] VITALS: Ht 170.2 cm; Wt 67.3 kg
[2018-08-30] MEDS ORDERED: KEPPRA500 MG PO (01:55)
[2018-08-30 02:22] LABS: BASOPHILS 0.1 % (0-2); EOSINOPHILS 0 % (0-7); HEMATOCRIT 36.9 % (36.0-48.0); HEMOGLOBIN 12.5 g/dL (12-16); IMMATURE GRANULOCYTES 0.2 % (0-5); LYMPHOCYTES 9.5 % (15-50); MCHC 33.9 g/dL (31.0-37.0); MCV 85.6 fL (80.0-100.0); MEAN PLATELET VOLUME 9.8 fL (7.4-10.4); MONOCYTES 4.3 % (2-11); NEUTROPHILS 85.9 % (40-80); RBC 4.31 10x6/uL (4.00-5.40); RDW 15.7 % (11.5-14.5); WBC 12.9 10x3/uL (4.8-10.8)
[2018-08-30 02:23] LABS: PLATELET COUNT 319 10x3/uL (130-400)
[2018-08-30 02:39] LABS: ALBUMIN 3.3 g/dL (3.4-5.0); ALKALINE PHOSPHATASE 106 U/L (46-116); ALT (SGPT) 22 U/L (10-68); BILIRUBIN - TOTAL 0.19 mg/dL (0.2-1.3); CALCIUM 8.6 mg/dL (8.5-10.1); CARBON DIOXIDE 23.5 mmol/L (21.0-32.0); CHLORIDE - SERUM 103 mmol/L (98-107); GLUCOSE 124 mg/dL (74-106); INR 1.05 (0.85-1.17); POTASSIUM - SERUM 4.8 mmol/L (3.5-5.1); PROTEIN - SERUM 6.7 g/dL (6.4-8.2); PROTIME 13.2 SECONDS (11.6-15.0); UREA NITROGEN 16 mg/dL (7-18); eGFR NON AFRICAN AMERICAN 61 mL/min (90-120)
[2018-08-30 02:40] LABS: APTT 28.1 SECONDS (22.8-39.4)
[2018-08-30 02:48] LABS: CALC OSMOLALITY 275 mosm/kg (275-300); CREATINE KINASE 121 UL (21-215); MAGNESIUM - SERUM 1.9 mg/dL (1.8-2.4); SODIUM 137 mmol/L (136-145); TROPONIN-I < 0.017 ng/mL (0.000-0.060)
[2018-08-30] MEDS ORDERED: ALBUTEROL SULF8.5 GM INH (03:30)
[2018-08-30] MEDS ORDERED: PREDNISONE20 MG PO (03:30)
[2018-08-30 04:16] VITALS: BP 114/68
== END 2018-08-30 04:16 | disposition home or self-care (01) ==
LOC: D.ER 01:49
PROVIDERS: Family Medicine
DX: T54.91XA Toxic effect of unspecified corrosive substance, accidental (unintentional), initial encounter (principal); J68.0 Bronchitis and pneumonitis due to chemicals, gases, fumes and vapors; Y92.89 Other specified places as the place of occurrence of the external cause; R51 Headache

== ENCOUNTER 2018-08-30 18:29 | Inpatient (IN) | payer OTHER, MEDICAID ==
[~2018-08-30] VITALS: Ht 170.2 cm; Wt 67.3 kg
[~2018-08-30 18:29] MED LIST changes: +ALBUTEROL SULF8.5 GM INH; +KEPPRA500 MG PO; +PREDNISONE20 MG PO
--- NOTE | 2018-08-30 21:20 | NUR ---
pt presents with c/o frontal headache. she reports a significant hx of migraines headaches but states "I haven't had one in a long time but I was cleaning with bleach yesterday and I've had a headache ever since. I feel just awful." pt is aaox4 on assessment. Bilateral inspiratory and expiratory wheezes noted on assessment. Pt denies vomiting but is positive for nausea. VSS - Pt ambulates with a steady gait. This nurse observes patient appearing to be in a relaxed stait, watching tv and scrolling/talking on her phone. She reports pain at 10/10 and states "well if they pain medicine they give me doesn't work I'll just be on the call light all night." Pt is advised to turn lights down low, low stimulation and try to relax by using non-pharmacological therapeutic techniques. Pt is also given a warm blanket and blue mechanical car checker socks from supply room.
[2018-08-31 03:50] VITALS: BP 122/69; Ht 170.2 cm; Wt 67.3 kg
[2018-08-31 04:51] VITALS: BP 100/53
[2018-08-31 05:09] LABS: ANION GAP 16.4 mmol/L (8-16); CARBON DIOXIDE 24.5 mmol/L (21.0-32.0); PHOSPHOROUS 3.9 mg/dL (2.5-4.9); POTASSIUM - SERUM 4.9 mmol/L (3.5-5.1)
[2018-08-31 05:33] LABS: BASOPHILS 0.1 % (0-2); EOSINOPHILS 0 % (0-7); HEMATOCRIT 37.4 % (36.0-48.0); HEMOGLOBIN 12.6 g/dL (12-16); IMMATURE GRANULOCYTES 0.2 % (0-5); LYMPHOCYTES 6.1 % (15-50); MCHC 33.7 g/dL (31.0-37.0); MCV 86.2 fL (80.0-100.0); MEAN PLATELET VOLUME 10.3 fL (7.4-10.4); MONOCYTES 1.9 % (2-11); NEUTROPHILS 91.7 % (40-80); PLATELET COUNT 344 10x3/uL (130-400); RBC 4.34 10x6/uL (4.00-5.40); RDW 16.1 % (11.5-14.5)
[2018-08-31 05:35] LABS: WBC 17.1 10x3/uL (4.8-10.8)
--- NOTE | 2018-08-31 07:58 | NUR ---
ALERT AND ORIENTED X 3. LUNGS CLEAR BILATERALLY IN ALL PINA. HEART SOUNDS S1 AND S2 HEARD IN ALL PINA. BOWEL SOUNDS ACTIVE X 4. STATES THREW UP THIS AM. PRN ZOFRAN GIVEN. STATES NEEDS MEDICATION FOR MIGRAINE. DOES NOT WANT TO TRY TYLENOL. WILL SPEAK WITH MD. IV TO RIGHT WRIST PATENT WITHOUT REDNESS. SKIN INTACT WITHOUT REDNESS. DENIES FURTHER NEEDS. BED LOW. CALL ORELLANA AND PERSONAL ITEMS IN REACH. WILL CONTINUE TO MONITOR.
[2018-08-31 10:01] VITALS: BP 106/55
--- NOTE | 2018-08-31 11:31 | NUR ---
STATES STILL HAS HEADACHE AND NAUSEA AFTER PRN ZOFRAN AND FIORICET. NAIN GUILLERMO ON FLOOR NOTIFIED. STATES WILL GO IN AND SEE PATIENT.
--- NOTE | 2018-08-31 12:08 | NUR ---
REQUESTED AND GIVEN CONCEPCION. DENIES FURTHER NEEDS.
[2018-08-31 12:43] VITALS: BP 110/63
--- NOTE | 2018-08-31 16:04 | NUR ---
PATIENT C/O MIGRAINE. SPOKE WITH ZAINAB GUILLERMO. ZAINAB STATED PATIENT HAS HAD FIORICET AND CAN HAVE IBUPROFEN. PATIENT DOES NOT WANT IBUPROFEN OR TYLENOL. PATIENT STATES WILL SIGN AMA.
--- NOTE | 2018-08-31 16:14 | NUR ---
AMA FORM TAKEN TO PATIENT. STATED DOES NOT WANT TO LEAVE AMA "BECAUSE INSURANCE WON'T COVER IT" BUT WANTS TO SEE "WHOEVER IS IN CHARGE." MEAL TEMPERER JENNIE NOTIFIED AND STATES WILL SEE PATIENT.
--- NOTE | 2018-08-31 16:31 | NUR ---
PATIENT SPOKE WITH MANAGER INTERNET JENNIE. DOES NOT WANT TO SIGN AMA. REQUESTED AND GIVEN COKE.
--- NOTE | 2018-08-31 16:38 | NUR ---
OFFERED PATIENT PRN FIORICET FOR HEADACHE. STATES DOES NOT WANT. WILL CONTINUE TO MONITOR.
--- NOTE | 2018-08-31 18:36 | NUR ---
RESTING IN BED. DENIES NEEDS. BED LOW. CALL ORELLANA AND PERSONAL ITEMS IN REACH.
[2018-08-31 19:09] VITALS: BP 117/70
[2018-08-31 20:00] VITALS: BP 109/58
--- NOTE | 2018-08-31 20:00 | NUR ---
RESTING IN BED EYES CLOSED RESP UNLABORED AND EVEN, NO APPARENT DISTRESS, CALL LIGHT IN REACH, DRESSED IN STREET CLOTHES
--- NOTE | 2018-08-31 20:30 | NUR ---
WALKED TO NURSES STATION AND REQUESTED 2 ORANGE SHERBETS AND A [place] SODA GIVEN RETURNED TO ROOM, STATES HEAD STILL HURTING INFORMED WOULD SEE ABOUT PAIN MEDICATION
--- NOTE | 2018-08-31 21:30 | NUR ---
WALKED TO NURSES STATION STATES I NEED SOMEONE TO CALL MY DR AND GET ME SOMETHING FOR THIS HEADACHE, OFFERED KATELYN, STATES THAT DOESNT DO ANYTHING I NEED SOMETHING DIFFERENT. INFORMED WOULD BE A FEW MINIUTES, RETURNED TO ROOM
--- NOTE | 2018-08-31 22:00 | NUR ---
PT CALLED ON PHONE ASKING FOR CHARGE NURSE, Loren PRAKASH RN CHARGE NURSE ANSWERED PHONE AND WENT TO PT ROOM, CALL BACK RECIEVED FROM EDNA HOLLINS, AND INFORMED OF PT REQUESTING DIFFERENT PAIN MEDICATION, STATES HAD SPKE WITH DR CABALLERO EARLIER TODAY AND HE KNEW PT WELL AND THAT HE WOULD NOT GIVE AND OTHER PAIN MEDICATIONS AND HE HAD TOLD PT THAT ALSO,
--- NOTE | 2018-08-31 22:15 | NUR ---
INFORMED OF WHAT EDNA HOLLINS HAD SAID AND OFFERED FIEORCET WHICH SHE TOOK, OFFERED TO RETAPE IV AT WHICH POING SHE PULLED IT OUT STATES NOT GETTING ANYTHING THROUGH IT DONT NEED IT. LAYING BACK IN BED CALL LIGHT IN REACH
--- NOTE | 2018-08-31 22:35 | NUR ---
OBSERVED PT WALKING FROM ROOM TOWARD MED 2 WITH PURSE OVER SHOULDER
--- NOTE | 2018-08-31 23:30 | NUR ---
HOUSE SUPERVISER MARCELA NOTIFIED OF ABOVE AND HAS NOT BEEN SEEN IN OVER 1 HR, NO PERSONAL BELONGING NOTED TO BE IN ROOM, EDNA GILLETTE NOTIFIED, ATTEMPTED TO CALL PT WITH NUMBER LISTED IN CHART, PERSON WHO ANSWERED STATES SHE WAS NOT MS MO OR HER SISTER AND THEY DIDNT LIVE THER AND HUNG UP. ADMISSIONS COORDINATOR INFORMED DISCHARGED AT THIS TIME
== END 2018-08-31 22:15 | disposition left against medical advice (07) | DRG 103 ==
LOC: D.ER 18:29 → D.MS 20:53
PROVIDERS: ADMIT Family Medicine Adult Medicine; ATTEND Family Medicine Adult Medicine
DX: G43.109 Migraine with aura, not intractable, without status migrainosus (principal); J68.0 Bronchitis and pneumonitis due to chemicals, gases, fumes and vapors; I10 Essential (primary) hypertension; E78.5 Hyperlipidemia, unspecified; D32.0 Benign neoplasm of cerebral meninges

== ENCOUNTER 2019-02-23 19:01 | Emergency (ER) | payer OTHER, MEDICAID ==
[~2019-02-23] VITALS: Ht 170.2 cm; Wt 68.2 kg
[2019-02-23 19:09] VITALS: Ht 170.2 cm; Wt 68.2 kg
[2019-02-23] MEDS ORDERED: TYLENOL W/CODEI1 TAB PO (20:19)
[2019-02-23 21:00] VITALS: BP 95/65
== END 2019-02-23 21:02 | disposition home or self-care (01) ==
LOC: D.ER 19:01
DX: R05 Cough (principal); R07.9 Chest pain, unspecified; I10 Essential (primary) hypertension; Z72.0 Tobacco use

== ENCOUNTER 2019-04-17 22:12 | Emergency (ER) | payer OTHER, MEDICAID ==
[~2019-04-17] VITALS: Ht 170.2 cm; Wt 68.2 kg
[~2019-04-17 22:12] MED LIST changes: +TYLENOL W/CODEI1 TAB PO
[2019-04-17 22:23] VITALS: Ht 170.2 cm; Wt 68.2 kg
[2019-04-17] MEDS ORDERED: PROTONIX40 MG PO (22:25)
[2019-04-17 23:53] VITALS: BP 110/74
== END 2019-04-17 23:48 | disposition home or self-care (01) ==
LOC: D.ER 22:12
DX: G43.909 Migraine, unspecified, not intractable, without status migrainosus (principal); R11.0 Nausea

== ENCOUNTER 2019-04-19 20:34 | Emergency (ER) | payer OTHER ==
[~2019-04-19] VITALS: Ht 170.2 cm; Wt 68.2 kg
[~2019-04-19 20:34] MED LIST changes: +PROTONIX40 MG PO
[2019-04-19 21:18] VITALS: Ht 170.2 cm; Wt 68.2 kg
[2019-04-19 22:24] VITALS: BP 128/80
== END 2019-04-19 22:25 | disposition home or self-care (01) ==
LOC: D.ER 20:34
DX: G43.909 Migraine, unspecified, not intractable, without status migrainosus (principal)

== ENCOUNTER 2019-04-19 23:38 | Emergency (ER) | payer OTHER ==
[~2019-04-19] VITALS: Ht 170.2 cm; Wt 68.2 kg
[2019-04-19 23:52] VITALS: Ht 170.2 cm; Wt 68.2 kg
[2019-04-20 01:43] VITALS: BP 124/80
== END 2019-04-20 01:43 | disposition home or self-care (01) ==
LOC: D.ER 23:38
DX: G43.909 Migraine, unspecified, not intractable, without status migrainosus (principal)

== ENCOUNTER 2019-04-23 22:28 | Emergency (ER) | payer OTHER ==
[~2019-04-23] VITALS: Ht 170.2 cm; Wt 68.2 kg
[2019-04-23 22:45] VITALS: Ht 170.2 cm; Wt 68.2 kg
[2019-04-23] MEDS ORDERED: KLONOPIN1 MG PO (22:48)
[2019-04-23] MEDS ORDERED: KEPPRA500 MG PO (22:48)
[2019-04-24 00:13] VITALS: BP 106/67
== END 2019-04-24 00:13 | disposition home or self-care (01) ==
LOC: D.ER 22:28
DX: G43.909 Migraine, unspecified, not intractable, without status migrainosus (principal)

== ENCOUNTER 2019-05-07 19:07 | Emergency (ER) | payer OTHER ==
[~2019-05-07] VITALS: Ht 170.2 cm; Wt 77.3 kg
[~2019-05-07 19:07] MED LIST changes: +KLONOPIN1 MG PO
[2019-05-07 19:14] VITALS: Ht 170.2 cm; Wt 77.3 kg
[2019-05-07] MEDS ORDERED: AUGMENTIN 875-11 TAB PO (21:18)
[2019-05-07 22:01] VITALS: BP 140/91
[2019-05-08] MEDS ORDERED: DICLOFENAC SODI50 MG PO (21:58)
== END 2019-05-07 22:01 | disposition home or self-care (01) ==
LOC: D.ER 19:07
DX: R51 Headache (principal); J32.9 Chronic sinusitis, unspecified; K21.9 Gastro-esophageal reflux disease without esophagitis; Z72.0 Tobacco use

== ENCOUNTER 2019-05-08 20:30 | Emergency (ER) | payer OTHER ==
[~2019-05-08] VITALS: Ht 170.2 cm; Wt 77.3 kg
[~2019-05-08 20:30] MED LIST changes: +AUGMENTIN 875-11 TAB PO
[2019-05-08 20:39] VITALS: Ht 170.2 cm; Wt 77.3 kg
[2019-05-08] MEDS ORDERED: DICLOFENAC SODI50 MG PO (21:58)
[2019-05-08 22:04] VITALS: BP 106/65
== END 2019-05-08 22:04 | disposition home or self-care (01) ==
LOC: D.ER 20:30
DX: R51 Headache (principal); R50.9 Fever, unspecified; K21.9 Gastro-esophageal reflux disease without esophagitis; R06.02 Shortness of breath

== ENCOUNTER 2019-06-09 18:18 | Emergency (ER) | payer OTHER ==
[~2019-06-09 18:18] MED LIST changes: +DICLOFENAC SODI50 MG PO
[2019-06-09 18:34] VITALS: Ht 170.2 cm
[2019-06-09 19:26] VITALS: BP 125/78
== END 2019-06-09 19:26 | disposition home or self-care (01) ==
LOC: D.ER 18:18
DX: G43.909 Migraine, unspecified, not intractable, without status migrainosus (principal); K21.9 Gastro-esophageal reflux disease without esophagitis

== ENCOUNTER 2019-07-28 21:56 | Emergency (ER) | payer OTHER ==
[~2019-07-28] VITALS: Ht 170.2 cm; Wt 79.4 kg
[2019-07-28 22:03] VITALS: Ht 170.2 cm; Wt 79.4 kg
[2019-07-28] MEDS ORDERED: BUSPAR5 MG (22:05)
[2019-07-28] MEDS ORDERED: HYDROCODON-ACE1 EAC7 PO (22:23)
[2019-07-28 22:47] VITALS: BP 134/85
== END 2019-07-28 22:48 | disposition home or self-care (01) ==
LOC: D.ER 21:56
DX: M62.830 Muscle spasm of back (principal); R42 Dizziness and giddiness; M54.9 Dorsalgia, unspecified

== ENCOUNTER 2019-09-25 16:16 | Emergency (ER) | payer MEDICARE ==
[~2019-09-25] VITALS: Ht 170.2 cm; Wt 73.6 kg
[~2019-09-25 16:16] MED LIST changes: +BUSPAR5 MG; +HYDROCODON-ACE1 EAC7 PO
[2019-09-25 16:40] VITALS: BP 135/85; Ht 170.2 cm; Wt 73.6 kg
== END 2019-09-25 20:50 | disposition home or self-care (01) ==
LOC: D.ER 16:16
DX: G43.909 Migraine, unspecified, not intractable, without status migrainosus (principal)

== ENCOUNTER 2019-10-27 21:57 | Emergency (ER) | payer MEDICARE ==
[~2019-10-27] VITALS: Ht 170.2 cm; Wt 73.2 kg
[2019-10-27 22:09] VITALS: Ht 170.2 cm; Wt 73.2 kg
[2019-10-28 01:00] VITALS: BP 107/77
== END 2019-10-28 01:13 | disposition home or self-care (01) ==
LOC: D.ER 21:57
DX: S09.90XA Unspecified injury of head, initial encounter (principal); W19.XXXA Unspecified fall, initial encounter; Y93.9 Activity, unspecified; Y92.9 Unspecified place or not applicable

== ENCOUNTER 2019-11-11 17:08 | Emergency (ER) | payer MEDICARE ==
[~2019-11-11] VITALS: Ht 170.2 cm; Wt 75.0 kg
[2019-11-11 17:23] VITALS: Ht 170.2 cm; Wt 75.0 kg
[2019-11-11 17:46] LABS: BASOPHILS 0.2 % (0-2); HEMATOCRIT 39.9 % (36.0-48.0); HEMOGLOBIN 13.5 g/dL (12-16); IMMATURE GRANULOCYTES 0.2 % (0-5); LYMPHOCYTES 18.3 % (15-50); MCH 29.5 pg (26.0-34.0); MCHC 33.8 g/dL (31.0-37.0); MCV 87.3 fL (80.0-100.0); MONOCYTES 6.7 % (2-11); NEUTROPHILS 72.6 % (40-80); PLATELET COUNT 295 10x3/uL (130-400); RBC 4.57 10x6/uL (4.00-5.40); RDW 15.9 % (11.5-14.5); WBC 10.2 10x3/uL (4.8-10.8)
[2019-11-11 18:21] LABS: BILIRUBIN NEGATIVE (NEGATIVE); KETONE MODERATE mg/dL (NEGATIVE); NITRITE NEGATIVE (NEGATIVE); UROBILINOGEN NORMAL mg/dL (< 2); WHITE CELLS - URINE OCC HPF (0-4)
[2019-11-11 18:41] LABS: CALC OSMOLALITY 270 mosm/kg (275-300); CARBON DIOXIDE 22.2 mmol/L (21.0-32.0); CHLORIDE - SERUM 104 mmol/L (98-107); CREATININE - SERUM 0.8 mg/dL (0.6-1.3); GLUCOSE 98 mg/dL (74-106); POTASSIUM - SERUM 3.6 mmol/L (3.5-5.1); SODIUM 136 mmol/L (136-145); UREA NITROGEN 9 mg/dL (7-18); eGFR NON AFRICAN AMERICAN 78 mL/min (90-120)
[2019-11-11 18:43] LABS: UDS - AMPHET NEGATIVE QUAL (NEGATIVE); UDS - BARB NEGATIVE QUAL (NEGATIVE); UDS - BENZO NEGATIVE QUAL (NEGATIVE); UDS - COCAINE NEGATIVE QUAL (NEGATIVE); UDS - OPIATE NEGATIVE QUAL (NEGATIVE); UDS - PCP NEGATIVE QUAL (NEGATIVE); UDS - THC NEGATIVE QUAL (NEGATIVE)
[2019-11-11 18:49] LABS: ALBUMIN 3.7 g/dL (3.4-5.0); ALKALINE PHOSPHATASE 94 U/L (30-120); ALT (SGPT) 25 U/L (10-68); BILIRUBIN - TOTAL 0.46 mg/dL (0.2-1.3); MAGNESIUM - SERUM 1.9 mg/dL (1.8-2.4); PROTEIN - SERUM 6.9 g/dL (6.4-8.2)
[2019-11-11 21:30] VITALS: BP 148/83
== END 2019-11-11 21:30 | disposition home or self-care (01) ==
LOC: D.ER 17:08
PROVIDERS: Family Medicine
DX: R56.9 Unspecified convulsions (principal); Z86.69 Personal history of other diseases of the nervous system and sense organs

== ENCOUNTER 2019-11-13 12:47 | Emergency (ER) | payer MEDICARE ==
[~2019-11-13] VITALS: Ht 170.2 cm; Wt 75.0 kg
[2019-11-13 12:56] VITALS: Ht 170.2 cm; Wt 75.0 kg
[2019-11-13 14:49] LABS: UDS - AMPHET NEGATIVE QUAL (NEGATIVE); UDS - BARB NEGATIVE QUAL (NEGATIVE); UDS - BENZO NEGATIVE QUAL (NEGATIVE); UDS - COCAINE NEGATIVE QUAL (NEGATIVE); UDS - OPIATE NEGATIVE QUAL (NEGATIVE); UDS - PCP NEGATIVE QUAL (NEGATIVE); UDS - THC NEGATIVE QUAL (NEGATIVE)
[2019-11-13 14:51] LABS: BILIRUBIN NEGATIVE (NEGATIVE); KETONE NEGATIVE (NEGATIVE); NITRITE NEGATIVE (NEGATIVE); UROBILINOGEN NORMAL mg/dL (< 2)
[2019-11-13 15:07] LABS: BASOPHILS 0.5 % (0-2); EOSINOPHILS 5.1 % (0-7); HEMATOCRIT 40.8 % (36.0-48.0); HEMOGLOBIN 13.5 g/dL (12-16); IMMATURE GRANULOCYTES 0.1 % (0-5); LYMPHOCYTES 26.7 % (15-50); MCH 29.1 pg (26.0-34.0); MCHC 33.1 g/dL (31.0-37.0); MCV 87.9 fL (80.0-100.0); MEAN PLATELET VOLUME 10.1 fL (7.4-10.4); MONOCYTES 7.7 % (2-11); NEUTROPHILS 59.9 % (40-80); PLATELET COUNT 285 10x3/uL (130-400); RBC 4.64 10x6/uL (4.00-5.40); RDW 15.8 % (11.5-14.5); WBC 8.8 10x3/uL (4.8-10.8)
[2019-11-13 15:25] LABS: APTT 32.4 SECONDS (22.8-39.4); INR 1.09 (0.85-1.17)
[2019-11-13 15:34] LABS: CALC OSMOLALITY 279 mosm/kg (275-300); CALCIUM 8.8 mg/dL (8.5-10.1); CARBON DIOXIDE 24.9 mmol/L (21.0-32.0); CHLORIDE - SERUM 105 mmol/L (98-107); CREATININE - SERUM 0.8 mg/dL (0.6-1.3); GLUCOSE 99 mg/dL (74-106); POTASSIUM - SERUM 3.6 mmol/L (3.5-5.1); SODIUM 141 mmol/L (136-145); UREA NITROGEN 9 mg/dL (7-18); eGFR NON AFRICAN AMERICAN 78 mL/min (90-120)
[2019-11-13 15:50] LABS: ALBUMIN 3.6 g/dL (3.4-5.0); ALKALINE PHOSPHATASE 93 U/L (30-120); ALT (SGPT) 22 U/L (10-68); CKMB 1.3 U/L (0.0-3.6); CREATINE KINASE 208 UL (21-215); MAGNESIUM - SERUM 1.8 mg/dL (1.8-2.4); PROTEIN - SERUM 6.4 g/dL (6.4-8.2)
[2019-11-13 15:51] LABS: TROPONIN-I < 0.017 ng/mL (0.000-0.060)
[2019-11-13 19:02] LABS: CKMB 1.3 U/L (0.0-3.6); CREATINE KINASE 177 UL (21-215)
[2019-11-13 19:05] LABS: TROPONIN-I < 0.017 ng/mL (0.000-0.060)
[2019-11-13 20:27] VITALS: BP 137/73
== END 2019-11-13 20:28 | disposition home or self-care (01) ==
LOC: D.ER 12:47
PROVIDERS: Family Medicine
DX: R56.9 Unspecified convulsions (principal); R07.89 Other chest pain; Z91.19 Patient's noncompliance with other medical treatment and regimen

== ENCOUNTER 2019-11-14 19:12 | Emergency (ER) | payer MEDICARE ==
[~2019-11-14] VITALS: Ht 170.2 cm; Wt 75.0 kg
[2019-11-14 19:53] VITALS: BP 120/84; Ht 170.2 cm; Wt 75.0 kg
[2019-11-14 20:50] LABS: BASOPHILS 0.3 % (0-2); EOSINOPHILS 3.7 % (0-7); HEMATOCRIT 41.1 % (36.0-48.0); HEMOGLOBIN 13.8 g/dL (12-16); IMMATURE GRANULOCYTES 0.1 % (0-5); LYMPHOCYTES 31.8 % (15-50); MCH 29.3 pg (26.0-34.0); MCHC 33.6 g/dL (31.0-37.0); MCV 87.3 fL (80.0-100.0); MEAN PLATELET VOLUME 9.9 fL (7.4-10.4); MONOCYTES 6.5 % (2-11); NEUTROPHILS 57.6 % (40-80); PLATELET COUNT 312 10x3/uL (130-400); RBC 4.71 10x6/uL (4.00-5.40); RDW 15.6 % (11.5-14.5); WBC 7.1 10x3/uL (4.8-10.8)
[2019-11-14 21:12] LABS: CALC OSMOLALITY 272 mosm/kg (275-300); CALCIUM 9.2 mg/dL (8.5-10.1); CARBON DIOXIDE 24.6 mmol/L (21.0-32.0); CHLORIDE - SERUM 104 mmol/L (98-107); CREATININE - SERUM 0.7 mg/dL (0.6-1.3); GLUCOSE 104 mg/dL (74-106); POTASSIUM - SERUM 3.7 mmol/L (3.5-5.1); SODIUM 138 mmol/L (136-145); eGFR NON AFRICAN AMERICAN > 90 mL/min (90-120)
[2019-11-14 21:14] LABS: ALBUMIN 3.7 g/dL (3.4-5.0); ALKALINE PHOSPHATASE 95 U/L (30-120); ALT (SGPT) 21 U/L (10-68); BILIRUBIN - TOTAL 0.39 mg/dL (0.2-1.3); PROTEIN - SERUM 7.1 g/dL (6.4-8.2)
[2019-11-14 21:15] LABS: UREA NITROGEN 5 mg/dL (7-18)
== END 2019-11-15 00:04 | disposition home or self-care (01) ==
LOC: D.ER 19:12
PROVIDERS: Family Medicine
DX: R56.9 Unspecified convulsions (principal)

== ENCOUNTER 2019-11-15 17:49 | Emergency (ER) | payer MEDICARE ==
[~2019-11-15] VITALS: Ht 170.2 cm; Wt 75.0 kg
[2019-11-15 17:57] VITALS: Ht 170.2 cm; Wt 75.0 kg
[2019-11-15 20:10] LABS: BASOPHILS 0.3 % (0-2); EOSINOPHILS 0.8 % (0-7); HEMATOCRIT 40.3 % (36.0-48.0); HEMOGLOBIN 13.5 g/dL (12-16); IMMATURE GRANULOCYTES 0.3 % (0-5); LYMPHOCYTES 29.6 % (15-50); MCH 29.1 pg (26.0-34.0); MCHC 33.5 g/dL (31.0-37.0); MCV 86.9 fL (80.0-100.0); MEAN PLATELET VOLUME 9.9 fL (7.4-10.4); MONOCYTES 10.2 % (2-11); NEUTROPHILS 58.8 % (40-80); PLATELET COUNT 292 10x3/uL (130-400); RBC 4.64 10x6/uL (4.00-5.40); RDW 15.4 % (11.5-14.5); WBC 7.4 10x3/uL (4.8-10.8)
[2019-11-15 20:32] LABS: CALC OSMOLALITY 270 mosm/kg (275-300); CARBON DIOXIDE 22.3 mmol/L (21.0-32.0); CHLORIDE - SERUM 103 mmol/L (98-107); CREATININE - SERUM 0.7 mg/dL (0.6-1.3); GLUCOSE 97 mg/dL (74-106); POTASSIUM - SERUM 3.7 mmol/L (3.5-5.1); SODIUM 136 mmol/L (136-145); eGFR NON AFRICAN AMERICAN > 90 mL/min (90-120)
[2019-11-15 20:34] LABS: UREA NITROGEN 10 mg/dL (7-18)
[2019-11-15 20:37] LABS: ALBUMIN 3.9 g/dL (3.4-5.0); ALKALINE PHOSPHATASE 99 U/L (30-120); ALT (SGPT) 24 U/L (10-68); BILIRUBIN - TOTAL 0.37 mg/dL (0.2-1.3); PROTEIN - SERUM 6.8 g/dL (6.4-8.2)
[2019-11-15 21:34] VITALS: BP 131/72
== END 2019-11-15 21:32 | disposition home or self-care (01) ==
LOC: D.ER 17:49
PROVIDERS: Family Medicine
DX: R56.9 Unspecified convulsions (principal)

== ENCOUNTER 2019-11-18 14:42 | Emergency (ER) | payer MEDICARE ==
[~2019-11-18] VITALS: Ht 170.2 cm; Wt 90.9 kg
[2019-11-18 14:47] VITALS: Ht 170.2 cm; Wt 90.9 kg
[2019-11-18 15:18] LABS: BASOPHILS 0.2 % (0-2); EOSINOPHILS 0.7 % (0-7); HEMATOCRIT 40.3 % (36.0-48.0); HEMOGLOBIN 13.7 g/dL (12-16); IMMATURE GRANULOCYTES 0.3 % (0-5); LYMPHOCYTES 13.7 % (15-50); MCH 29.6 pg (26.0-34.0); MEAN PLATELET VOLUME 10.4 fL (7.4-10.4); MONOCYTES 10.6 % (2-11); NEUTROPHILS 74.5 % (40-80); PLATELET COUNT 341 10x3/uL (130-400); RBC 4.63 10x6/uL (4.00-5.40); RDW 15.2 % (11.5-14.5); WBC 10.6 10x3/uL (4.8-10.8)
[2019-11-18 15:35] LABS: NITRITE NEGATIVE (NEGATIVE)
[2019-11-18 15:36] LABS: BILIRUBIN NEGATIVE (NEGATIVE); KETONE MODERATE mg/dL (NEGATIVE); UROBILINOGEN NORMAL mg/dL (< 2)
[2019-11-18 15:41] LABS: BACTERIA FEW HPF (NONE SEEN); EPITHELIAL CELLS 0-5 /hpf (0-5)
[2019-11-18 15:44] LABS: CALCIUM 9.7 mg/dL (8.5-10.1); CARBON DIOXIDE 17.1 mmol/L (21.0-32.0); CREATININE - SERUM 0.9 mg/dL (0.6-1.3); POTASSIUM - SERUM 3.1 mmol/L (3.5-5.1)
[2019-11-18 15:46] LABS: UDS - AMPHET NEGATIVE QUAL (NEGATIVE); UDS - BARB NEGATIVE QUAL (NEGATIVE); UDS - BENZO NEGATIVE QUAL (NEGATIVE); UDS - COCAINE NEGATIVE QUAL (NEGATIVE); UDS - OPIATE NEGATIVE QUAL (NEGATIVE); UDS - PCP NEGATIVE QUAL (NEGATIVE); UDS - THC NEGATIVE QUAL (NEGATIVE)
[2019-11-18 15:49] LABS: ALBUMIN 4.1 g/dL (3.4-5.0); BILIRUBIN - TOTAL 1.18 mg/dL (0.2-1.3); MAGNESIUM - SERUM 1.9 mg/dL (1.8-2.4); PROTEIN - SERUM 7.3 g/dL (6.4-8.2)
[2019-11-19 15:04] VITALS: BP 108/74
== END 2019-11-19 18:37 ==
LOC: D.ER 14:42
PROVIDERS: Family Medicine
DX: F29 Unspecified psychosis not due to a substance or known physiological condition (principal); F31.9 Bipolar disorder, unspecified